=== PATIENT | female | born 1960 | race Caucasian/White ===

== ENCOUNTER → 2016-09-14 | Outpatient (CLI) | payer OTHER ==
--- NOTE | 2016-09-15 11:12 | MR ---
Left ankle MRI HISTORY: Left ankle pain and swelling Correlation to prior left ankle MRI dated 07/12/2015 Abnormal thickening, abnormal increased signal within the Achilles tendon is again noted, there is tena rrounding edema signal as on prior exam. Findings may represent interstitial tears. The abnormal sign al along the peroneal tendons as on previous exam, difficult to exclude a small split-thickness tear as on prior, suspect ganglion cyst persists as noted on prior exam extending from the level of the si nus Tarsi. Fluid signal again noted along the flexor tendons. Some edema present in the subchondral region at the tarsometatarsal joints of the second, third and f irst digits compatible with osteoarthritis. Later aponeurosis is intact. Findings are essentially sta ble compared to prior exam. IMPRESSION: Stable exam. Longitudinal interstitial tear is suspected within the Achilles tendon, mode rate to severe middle third Achilles tendinosis, peritendinitis.. Peroneal and flexor tendons tenosyn ovitis. Osteoarthritic change metatarsal tarsal joints. Stable ganglion cyst.
== END | disposition home or self-care (01) ==
LOC: RADMRIMAIN 14:42
PROVIDERS: ATTEND Nurse Practitioner Family
DX: M19.072 Primary osteoarthritis, left ankle and foot (principal); M67.472 Ganglion, left ankle and foot; M76.62 Achilles tendinitis, left leg; M65.872 Other synovitis and tenosynovitis, left ankle and foot

== ENCOUNTER → 2016-09-21 | Outpatient (CLI) | payer OTHER ==
--- NOTE | 2016-09-26 08:51 | MM ---
Reason for exam: screening (asymptomatic). Last mammogram was performed 5 years and 9 months ago. History: Patient is postmenopausal. Physical Findings: A clinical breast exam by your physician is recommended on an annual basis and results should be correlated with mammographic findings. MG Screening Mammo w CAD Bilateral CC and MLO view(s) were taken. Prior study comparison: December 12, 2010, mammogram. There are scattered fibroglandular densities. No significant changes when compared with prior studies. ASSESSMENT: Benign, BI-RAD 2 RECOMMENDATION: Routine screening mammogram of both breasts in 1 year.
== END | disposition home or self-care (01) ==
LOC: RADMAMWWP 15:22
PROVIDERS: ATTEND Family Medicine
DX: Z12.31 Encounter for screening mammogram for malignant neoplasm of breast (principal)

== ENCOUNTER → 2016-11-22 | Outpatient (CLI) | payer OTHER ==
--- NOTE | 2016-11-23 13:02 | MR ---
EXAMINATION TYPE: MR knee RT wo con DATE OF EXAM: 11/22/2016 COMPARISON: NONE HISTORY: Rt. knee pain TECHNIQUE: Multiplanar, multisequence imaging of the right knee is performed without IV contrast. FINDINGS: MEDIAL MENISCUS: There is a complex, likely chronic tear of the medial meniscus involving both radial and longitudinal components as well as the anterior and posterior horns. LATERAL MENISCUS: Anterior and posterior horns are intact without tear. CRUCIATE LIGAMENTS: The anterior and posterior cruciate ligaments are intact and unremarkable. COLLATERAL LIGAMENTS: The medial collateral ligament and lateral collateral ligament complex are inta ct and unremarkable. EXTENSOR MECHANISM: Visualized quadriceps and patellar tendons are intact. EFFUSION: Small suprapatellar joint effusion is seen with internal intermediate signal compatible wi th synovitis. Medial and lateral retinacula are intact. POPLITEAL CYST: No popliteal/rashid cyst. TRICOMPARTMENT SPACES: Tricompartmental joint space narrowing is seen, most severe within the medial compartment with near [id number]-ci-vvva articulation and subchondral bone marrow edema. Large protuberant marginal osteophytes are also seen. The medial and lateral femoral condyles. CARTILAGE: No focal fissures are seen or partial thickness defects of the lateral patellar facet or t rochlea, however heterogenous signal is appreciated indicative of chondromalacia. Focal near full-thi ckness cartilaginous defect of the medial facet of the superior patella is seen measuring 1.1 cm. Focal full-thickness cartilaginous defect of the medial compartment is present measuring 1.5 x 1.9 cm in transverse by anterior posterior dimension. Again underlying subchondral bone marrow edema is see n as well as subchondral cysts indicating chronicity. Heterogenous signal intensity is seen of the lateral compartment cartilage although no full-thickness or partial-thickness defects are seen. OTHER: High fluid signal is seen deep to the medial collateral ligament compatible with MCL bursitis . Nonspecific small amount of prepatellar edema is present. IMPRESSION: 1. Complex tear of the entirety of the medial meniscus involving the anterior horn, posterior horn, a nd meniscal body. Underlying full-thickness cartilaginous defect of the medial compartment measures 1 .5 x 1.9 cm with subchondral bone marrow edema and subchondral cysts. 2. Moderate tricompartmental osteoarthrosis and chondrosis, most severe within the medial compartment . 3. Medial collateral ligament bursitis. 4. Small suprapatellar joint effusion and evidence of synovitis.
== END | disposition home or self-care (01) ==
LOC: RADMRIMAIN 08:22
PROVIDERS: ATTEND Nurse Practitioner Family
DX: S83.241A Other tear of medial meniscus, current injury, right knee, initial encounter (principal); M76.41 Tibial collateral bursitis [Pellegrini-Stieda], right leg; M17.11 Unilateral primary osteoarthritis, right knee; M94.8X6 Other specified disorders of cartilage, lower leg; M25.861 Other specified joint disorders, right knee

== ENCOUNTER → 2017-03-23 | Outpatient (CLI) | payer OTHER ==
--- NOTE | 2017-03-23 16:36 | MR ---
EXAMINATION TYPE: MR knee LT wo con DATE OF EXAM: 03/23/2017 COMPARISON: NONE HISTORY: Left Knee pain with Swelling since Pt Fell May 2016 TECHNIQUE: Multiplanar, multisequence imaging of the left knee is performed without IV contrast. FINDINGS: MEDIAL MENISCUS: There is pseudoextrusion of the medial meniscus. Increased signal present within the posterior horn of the medial meniscus suggests tear, the meniscus is attenuated especially in the debra dy and along the anterior horn, there is also abnormal signal in the anterior horn suggestive of tear LATERAL MENISCUS: Anterior and posterior horns are intact without tear. CRUCIATE LIGAMENTS: The anterior and posterior cruciate ligaments are intact and unremarkable. COLLATERAL LIGAMENTS: The medial collateral ligament and lateral collateral ligament complex are inta ct and unremarkable. EXTENSOR MECHANISM: Visualized quadriceps and patellar tendons are intact. EFFUSION: No significant suprapatellar joint effusion. POPLITEAL CYST: No popliteal/rashid cyst. TRICOMPARTMENT SPACES: Joint space loss present especially in the medial compartment. 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 Some grade 2 to grade III chond romalacia suspected within the lateral compartment. Grade III chondromalacia suspected inferior poste rior patella BONE MARROW SIGNAL: Subchondral edema present in the medial compartment. OTHER: Tricompartmental marginal spurring is present and there is some soft tissue subcutaneous praveen a which is mild anteriorly IMPRESSION: Osteoarthritis most significant in the medial compartment with probable degenerative tear of the medi al meniscus.
== END | disposition home or self-care (01) ==
LOC: RADMRIMAIN 12:36
PROVIDERS: ATTEND Nurse Practitioner Family
DX: M17.12 Unilateral primary osteoarthritis, left knee (principal)

== ENCOUNTER → 2017-12-03 | Outpatient (CLI) | payer MEDICARE, OTHER ==
--- NOTE | 2017-12-04 12:22 | MM ---
Reason for exam: screening (asymptomatic). Last mammogram was performed 1 year and 2 months ago. History: Patient is postmenopausal. Physical Findings: A clinical breast exam by your physician is recommended on an annual basis and results should be correlated with mammographic findings. MG 3D Screening Mammo W/Cad Bilateral CC and MLO view(s) were taken. XCCL view(s) were taken of the right breast. Prior study comparison: September 21, 2016, bilateral MG screening mammo w CAD. December 12, 2010, mammogram. There are scattered fibroglandular densities. There is no discrete abnormality. No significant changes when compared with prior studies. ASSESSMENT: Negative, BI-RAD 1 RECOMMENDATION: Routine screening mammogram of both breasts in 1 year.
== END | disposition home or self-care (01) ==
LOC: RADMAMWWP 16:30
PROVIDERS: ATTEND Family Medicine
DX: Z12.31 Encounter for screening mammogram for malignant neoplasm of breast (principal)
CPT/HCPCS: 77063; 77067

== ENCOUNTER → 2018-01-10 | Outpatient (CLI) | payer MEDICARE, OTHER ==
--- NOTE | 2018-01-10 21:42 | MR ---
MR left ankle HISTORY: Left ankle pain Multiplanar multisequence imaging obtained through the left ankle Correlation to prior exam MR left ankle 09/14/2016 The Achilles tendon shows a similar appearance to prior exam, there is some surrounding edema change, abnormal thickening, increased signal internally compatible with partial interstitial Achilles tendo n tear. Subcutaneous edema changes are again noted. Bone marrow signal is maintained. Plantar aponeur osis is intact. There is a plantar calcaneal spur present. Arthropathy present at the tarsometatarsal joints. No sizable ankle joint effusion. Ganglion cyst again noted possibly originating from the sin us Tarsi. Fluid signal is coursing along the peroneal longus and brevis tendons, similar appearance, difficult to exclude a split-thickness tear. Flexor and extensor tendons are intact. IMPRESSION: Essentially stable findings. Findings compatible with chronic partial tear of the Aprli s tendon. Additional findings above, osteoarthritis. Ganglion cyst.
== END ==
LOC: RADMRIMAIN 20:18
PROVIDERS: ATTEND Podiatrist Foot & Ankle Surgery
DX: M19.072 Primary osteoarthritis, left ankle and foot (principal); M77.32 Calcaneal spur, left foot; M67.472 Ganglion, left ankle and foot

== ENCOUNTER → 2023-01-25 | Outpatient (CLI) | payer MEDICARE | END | disposition home or self-care (01) | LOC: LABWHC1 12:50 | PROVIDERS: ATTEND Orthopaedic Surgery | DX: Z01.812 Encounter for preprocedural laboratory examination (principal); M17.11 Unilateral primary osteoarthritis, right knee; Z22.322 Carrier or suspected carrier of Methicillin resistant Staphylococcus aureus | CPT/HCPCS: 87070 ==

== ENCOUNTER 2023-02-04 08:24 | Observation (INO) | payer MEDICARE ==
[2023-02-01 08:49] VITALS: BMI 45.6
--- NOTE | 2023-02-03 18:10 | HP ---
HISTORY AND PHYSICAL DATE OF SURGERY: Her surgery is scheduled for 02/04/2023. HISTORY OF PRESENT ILLNESS: Abimbola Linton is a 62-year-old patient, seen with symptomatic right knee osteoarthritis. We discussed options for treatment. She elected to proceed with right total knee arthroplasty. Consent was obtained. Medical clearance was provided by Dr. Ronal Paige PAST MEDICAL HISTORY: Noncontributory. PAST SURGICAL HISTORY: Noncontributory. DAILY MEDICATIONS: Ibuprofen. ALLERGIES: 1. Penicillin. 2. Shellfish. SOCIAL HISTORY: She denies tobacco use. PHYSICAL EVALUATION OF THE RIGHT KNEE: Range of motion is -7 to 90 degrees. Tenderness along the medial and lateral joint lines. Crepitus along the medial patellofemoral compartments with range of motion. Genu varum deformity. Hip rotation without pain. Distal neurovascular exam is intact. IMAGING STUDIES: Radiographs of the right knee reveal severe osteoarthritic changes. IMPRESSION: Right knee osteoarthritis. PLAN: Right total knee arthroplasty. MMODL / IJN: [id number] /
[~2023-02-04 08:24] MED LIST: ACETAMINOPHEN TAB 500 MG TAB PO PRN; HYDROmorphone 0.5 MG/0.5 ML SYRINGE IVP PRN; LIDOCAINE 1% (10MG/ML) FOR IV START INTRADERMA PRN; MELOXICAM 7.5 MG TAB PO PRN; ONDANSETRON 4 MG/2 ML VIAL IVP ONE; TRANEXAMIC 1,000 MG/100ML-NACL 1,000 MG in SALINE 1 100ML.BAG IVPB PRN
[2023-02-04] MEDS: LACTATED RINGERS 1,000 ML IV SCH ×3 (09:16→23:18)
[2023-02-04] MEDS ORDERED: MIDAZOLAM 2 MG/2 ML VIAL IVP ONE (09:46)
--- NOTE | 2023-02-04 10:23 | P.ANPRN ---
Procedure Note - Anesthesia - Nerve Block Performed Right iPack Single Time Out Performed: Yes (0945) Date of Procedure: 02/04/23 Procedure Start Time: 09:53 Procedure Stop Time: 09:56 Location of Patient: PreOp Indication: Acute Post-Operative Pain, Requested by Surgeon Specifically requested for management of pain by DrBeverly: Mayo Elliott Sedation Type: Sedate with meaningful contact maintained Preparation: Sterile Prep Position: Supine Catheter: None Needle Types: Pajunk Needle Gauge: 21 Ultrasound used to visualize needle placement: Yes Ultrasound used to observe medication spread: Yes Injectate: 0.5% Ropivacaine (see comment for volume) (15cc+5cc nacl pf) Blood Aspirated: No Pain Paresthesia on Injection Noted: No Resistance on Injection: Normal Image Stored and Saved: Yes Events: Uneventful and Well Tolerated
--- NOTE | 2023-02-04 10:23 | P.ANPRN ---
Procedure Note - Anesthesia - Nerve Block Performed Right Adductor Canal Infusion Time Out Performed: Yes (0945) Date of Procedure: 02/04/23 Procedure Start Time: 09:46 Procedure Stop Time: 09:52 Location of Patient: PreOp Indication: Acute Post-Operative Pain, Requested by Surgeon Specifically requested for management of pain by DrBeverly: Mayo Elliott Sedation Type: Sedate with meaningful contact maintained Preparation: Sterile Prep Position: Supine Catheter Depth at Skin (cm): 9 Catheter: Indwelling Needle Types: Pajunk Needle Gauge: 18 Ultrasound used to visualize needle placement: Yes Ultrasound used to observe medication spread: Yes Injectate: 0.5% Ropivacaine (see comment for volume) (15cc+ 5cc nacl pf) Blood Aspirated: No Pain Paresthesia on Injection Noted: No Resistance on Injection: Normal Image Stored and Saved: Yes Events: Uneventful and Well Tolerated
[2023-02-04] MEDS ORDERED: ROPIVACAINE 5 MG/ML 30 ML VIAL ONE (10:25)
[2023-02-04] MEDS ORDERED: SODIUM CHLORIDE 0.9% (PF) 10 ML VIAL ONE (10:25)
[2023-02-04] MEDS ORDERED: fentaNYL (PF) 50 MCG/ML 50 ML VIAL ONE (10:25)
[2023-02-04] MEDS ORDERED: TRANEXAMIC 1,000 MG/100ML-NACL PREMIX BAG ONE (10:25)
[2023-02-04] MEDS ORDERED: PROPOFOL 10 MG/ML 20 ML VIAL IV ONE (10:25)
[2023-02-04] MEDS ORDERED: MIDAZOLAM 2 MG/2 ML VIAL ONE (10:25)
[2023-02-04] MEDS ORDERED: ceFAZolin 1,000 MG in SODIUM CHLORIDE 0.9% 1,000 ML IRRIGATION ONE (11:47)
[2023-02-04] MEDS ORDERED: ONDANSETRON 4 MG/2 ML VIAL IVP PRN (12:04)
[2023-02-04] MEDS ORDERED: NALOXONE 0.4 MG/ML 1 ML VIAL IV PRN (12:04)
[2023-02-04] MEDS ORDERED: HYDROmorphone 0.5 MG/0.5 ML SYRINGE IVP PRN (12:04)
--- NOTE | 2023-02-04 12:04 | P.OP ---
Date of Procedure: 02/04/23 Preoperative Diagnosis: Right knee osteoarthritis Postoperative Diagnosis: Right knee osteoarthritis Procedure(s) Performed: Right total knee arthroplasty Implants: 1. Depuy attune size 5 right cruciate retaining cemented femur 2. Depuy attune size 5 fixed bearing cemented tibial baseplate 3. Depuy attune size 5 fixed bearing cruciate retaining 12 mm polyethylene tibial insert 4. Depuy attune 35 mm all polyethylene cemented patella Anesthesia: regional (Abductor canal catheter, I packed locked), spinal Surgeon: Mayo Elliott [employer]er #1: Alphonse Schneider Estimated Blood Loss (ml): 35 Pathology: none sent Condition: stable Disposition: PACU Indications for Procedure: 62-year-old patient seen with symptomatic right knee osteoarthritis. After treatment options were discussed, she elected to proceed with total knee arthroplasty. Operative Findings: See description of procedure Description of Procedure: Patient was taken to the operative suite after having an adductor canal catheter placed by the department of anesthesia. Patient underwent a spinal anesthetic by the department of anesthesia. Patient was given preoperative IV intake antibiotics and TXA. A well-padded tourniquet was placed about the right lower extremity. The lower extremity was then prepped and draped in the normal sterile orthopedic fashion. The extremity was elevated, a tourniquet was insufflated to 300. A standard anterior incision was made sharply through skin. Dissection was taken down through the subcutaneous soft tissues down to the extensor mechanism. A medial arthrotomy was performed, patella was everted and knee was flexed. There was advanced osteoarthritis noted. I introduced my distal intramedullary femoral drill. I then introduced the distal femoral cu tting jig. Ariel SANTIAGO secured the cutting jig with 2 pins. I held retractors in position while Ariel SANTIAGO performed the distal femoral resection through the guide area we now removed her distal femoral cutting guide. We now placed our 4-in-1 femoral cutting block and positioned and it was secured with 2 pins by Ariel SANTIAGO while I held the block in position. The distal femoral finishing was now completed. A proximal tibial cutting guide was positioned. I held the guide in the appropriate position with both hands well Ariel SANTIAGO inserted stabilizing pins into the guide. Proximal tibial cut was made. We now placed a trial femoral component into position, along with an appropriate size tibial tray and insert. We now took the knee through range of motion and had full extension good flexion and good overall soft tissue balance noted. The patella was everted and stabilized with 2 towel clips held by Ariel SANTIAGO while I performed a flush with patellar quad tendon utilizing a fresh sawblade. We templated the patella, appropriate drill holes were made. An appropriate trial patella was positioned, knee was taken through full range of motion with the patella tracking very nicely. The trial patella was removed. Drill holes were made through the femoral component. All trial components were removed after marking off the appropriate rotation of the tibia. Retractors were now positioned along the proximal tibia. An appropriate keel punch was made with the appropriate size tibial guide by myself on Ariel SANTIAGO assisted by holding retractors. At this point appropriate size implants were chosen and opened. The joint was irrigated copiously with pulse lavage mechanical irrigation. The wound was irrigated with pulse lavage mechanical irrigation. We mixed antibiotic methylmethacrylate. We placed the knee into flexion. We placed multiple retractors assisted by Ariel SANTIAGO to expose the proximal tibia. Once the methyl methacrylate was ready, the tibial component was cemented into place removing any excess methylmethacrylate form by both myself and Ariel SANTIAGO. The femoral component was cemented into place removing the removing any excess methylmethacrylate performed by both myself and Ariel SANTIAGO. We then inserted the appropriate size polyethylene tibial insert. We made sure that it was locked into position. We took the knee into full extension, and then back in a flexion making sure we had removed any excess methylmethacrylate. The patellar component was then cemented down and secured with clamp. Excess methylmethacrylate removed. We kept the knee in full extension, patellar clamp in position until methylmethacrylate had hardened. Once it had hardened the patellar clamp was removed. The knee was taken through full range of motion. The patella tracked nicely. There was good soft tissue balancing. The tourniquet was now released. Additional hemostasis was achieved via electrocautery. A second gram of TXA was given. The wound again was irrigated with pulse lavage mechanical irrigation. The extensor mechanism was repaired with Ethibond suture. We checked the repair with range of motion and it was stable. The subcutaneous soft tissues were repaired with Vicryl in layers. The skin was approximated with pernio/Dermabond. Sterile dressings were applied followed by loose web roll and Pancho bandage. The patient was transferred to a bed, and taken to recovery in stable and satisfactory condition. Ariel SANTIAGO assisted with this complex procedure.
[2023-02-04] MEDS ORDERED: ROPIVACAINE 1,100 MG, SODIUM CHLORIDE 0.9% 500 ML 330 ML, EMPTY PAIN BALL 1 EACH MISCELLANE PRN ×2 (12:57)
--- NOTE | 2023-02-04 13:12 | XR ---
EXAMINATION TYPE: XR knee limited RT DATE OF EXAM: 02/04/2023 CLINICAL HISTORY: Postoperative evaluation Two views of the right knee are submitted. Identified are changes of total knee arthroplasty with femoral and tibial components appearing well seated. Postsurgical soft tissue changes are noted. Alignment is anatomic.
[2023-02-04] MEDS: HYDROmorphone 1 MG/ML 1 ML SYRINGE IVP PRN (16:32)
[2023-02-04] MEDS: HYDROcodone/APAP 7.5-325MG 1 EACH TAB PO PRN (20:57)
[2023-02-04] MEDS: SENNOSIDES-DOCUSATE SODIUM 1 EACH TAB PO SCH (20:57)
[2023-02-05] MEDS: ENOXAPARIN 30 MG/0.3 ML SYRINGE SQ SCH ×3 (01:21→20:16)
[2023-02-05] MEDS: HYDROmorphone 0.5 MG/0.5 ML SYRINGE IVP PRN (01:22)
[2023-02-05] MEDS: HYDROcodone/APAP 7.5-325MG 1 EACH TAB PO PRN ×2 (06:19→20:16)
--- NOTE | 2023-02-05 07:37 | P.PN ---
Progress Note - Text Progress Note Date: 02/05/23 (647) Anesthesiology Postop day 1 status post total knee arthroplasty with adductor canal catheter. Patient doing well. VAS 10 out of 10. Gross strength intact in lower extremity. Afebrile. Denies alterations in sensorium. Catheter site intact. Currently awaiting next dose of breakthrough medication Heart regular rate Lungs nonlabored Abdomen nondistended Assessment: Postop day 1 status post total knee arthroplasty with adductor canal catheter Plan: 1.All questions answered. Maintain catheter 2 more days with patient removal at home. Instructions to be given at discharge. 2.This note was dictated using [employer] software. Please be advised there is a potential for misspellings or errors in manager competitive intelligence.
[2023-02-05] MEDS ORDERED: hydrOXYzine pamoate 25 MG CAP PO PRN (08:12)
[2023-02-05] MEDS ORDERED: ONDANSETRON 4 MG/2 ML VIAL IVP PRN (08:12)
[2023-02-05] MEDS: HYDROmorphone 1 MG/ML 1 ML SYRINGE IVP PRN ×3 (08:14→17:39)
[2023-02-05] MEDS: LACTATED RINGERS 1,000 ML IV SCH ×3 (08:25→17:35)
[2023-02-05 09:34] LABS: Basophils # (A) 0.03 X 10*3/uL (0.00-0.10); Basophils % (A) 0.4 %; Eosinophils # (A) 0.04 X 10*3/uL (0.04-0.35); Eosinophils % (A) 0.5 %; HCT 39.1 % (37.2-46.3); HGB 12.7 g/dL (12.0-15.0); Lymphocytes # (A) 1.54 X 10*3/uL (0.90-5.00); Lymphocytes % (A) 19.6 %; MCH 28.5 pg (27.0-32.0); MCHC 32.5 g/dL (32.0-37.0); MCV 87.9 FL (80.0-97.0); Mean Platelet Volume 13.1 FL (9.5-12.2); Monocytes % (A) 8.9 %; NRBC Per 100 WBC 0 X 10*3/uL (0.00-0.01); Neutrophils # (A) 5.51 X 10*3/uL (1.80-7.70); Neutrophils % (A) 70.3 %; Platelet Count 231 X 10*3/uL (140-440); RBC 4.45 X 10*6/uL (4.10-5.20); RDW 12.8 % (11.5-14.5); WBC 7.84 X 10*3/uL (4.50-10.00)
--- NOTE | 2023-02-05 10:39 | P.PN ---
Subjective Progress Note Date: 02/05/23 Principal diagnosis: Right knee osteoarthritis Patient was seen at bedside this morning lying semirecumbent position with Pancho bandages present over right lower extremity. Patient says she has been in a lot of pain overnight since surgery from yesterday. Patient says she has been up several times to use the commode next to the bed. Patient says the Barbeau has only been helping control her pain for a couple hours at a time. Patient mentions that she is also in nauseated and has vomited once since surgery yesterday. Patient says she does have a walker for home. Patient says she is looking forward to working with therapy later this morning. Patient denies chest pain, fever, shortness of breath, loss of bowel/bladder control. Objective - Vital Signs Vital signs: Vital Signs Temp 99.1 F 02/05/23 06:53 Pulse 64 02/05/23 06:53 Resp 16 02/05/23 06:53 BP 117/64 02/05/23 06:53 Pulse Ox 95 02/05/23 06:53 FiO2 Intake & Output 02/04/23 02/05/23 02/05/23 18:59 06:59 18:59 Intake Total 1051 Output Total 40 Balance 1011 Weight 102 kg Intake: IV 1051 Output: Estimated Blood Loss 40 Other: # Voids 1 1 - Exam Right knee: Incision is clean, dry, and intact. The silver foam dressing is in good condition. There is minimal soft tissue swelling and ecchymosis surrounding the medial and lateral aspects of the incision. Calf is soft, no tenderness with palpation. Plantar flexion, dorsiflexion, EHL, FHL are intact. Sensory exam to light touch throughout the extremity is intact, dorsal pedis pulses 2+. - Labs CBC & Chem 7: 02/05/23 05:05 Assessment and Plan Assessment: 1. Right knee osteoarthritis - Postop day 1 status post right total knee arthroplasty Plan: 1. Right knee osteoarthritis - right total knee arthroplasty performed yesterday, 01/04/2023. Patient stable at bedside this morning. Plan to keep patient 1 more night for additional pain control and therapy. Planning for discharge home tomorrow with health services. 2. Appreciate medical management 3. Pain management - Barbeau; Vistaril 4. DVT prophylaxis - Xarelto 5. GI prophylaxis - senna 6. PT/OT - weightbearing as tolerated with walker 7. Encourage incentive spirometer use 8. Discharge planning - plan for discharge home with health services tomorrow Time with Patient: Less than 30
--- NOTE | 2023-02-05 17:13 | P.CONS ---
History of Present Illness - Reason for Consult Consult date: 02/12/23 Medical management Requesting physician: Mayo Elliott - Chief Complaint Right knee osteoarthritis - History of Present Illness This is 62-year-old female with past medical history significant for obesity, right knee osteoarthritis status post right total knee arthroplasty. Tolerated procedure well. Complains of right hip pain as well as right knee pain. Reports positive nausea, no emesis. Denies chest pain, palpitations or shortness of breath. Maintaining O2 sats in the high 90s on room air. Passing flatus. T-max 99.1, WBC within normal limits. Review of Systems Constitutional: Denied any fatigue denied any fever. Cardio vascular: denied any chest pain, palpitations Gastrointestinal denied any nausea vomiting Pulmonary: Denied any shortness of breath cough Neurologic denied any new focal deficits All inpatient medications were reviewed and appropriate changes in these medications as dictated in the interval history and assessment and plan. Past Medical History Past Medical History: Osteoarthritis (OA) Additional Past Medical History / Comment(s): back, shoulder pain History of Any Multi-Drug Resistant Organisms: None Reported Past Surgical History: Appendectomy, Cholecystectomy, Orthopedic Surgery Additional Past Surgical History / Comment(s): ectopic SX. BILAT BUNIONECTOMIES. PILONIDAL CYSTECTOMY. COLONOSCOPY. CYST REMOVED FROM UNDER C HIN. Right total knee Past Anesthesia/Blood Transfusion Reactions: Previous Problems w/ Anesthesia, Postoperative Nausea & Vomiting (PONV) Additional Past Anesthesia/Blood Transfusion Reaction / Comm: SLOW TO WAKE UP FROM ANESTHESIA Past Psychological History: No Psychological Hx Reported Smoking Status: Former smoker Past Alcohol Use History: None Reported Additional Past Alcohol Use History / Comment(s): QUIT SMOKING IN THE Past Drug Use History: None Reported - Past Family History Daughter(s) Family Medical History: Cancer Additional Family Medical History / Comment(s): BREAST Mother Family Medical History: Deep Vein Thrombosis (DVT) Sister(s) Family Medical History: Cancer Medications and Allergies Home Medications Medication Instructions Recorded Confirmed Type No Known Home Medications 02/01/23 02/04/23 History Allergies Allergy/AdvReac Type Severity Reaction Status Date / Time Iodinated Contrast Media Allergy Anaphylaxis Verified 02/04/23 08:59 [Iodinated Contrast Media - IV Dye] Penicillins Allergy Rash/Hives Verified 02/04/23 08:59 shellfish derived [Shellfish] Allergy Anaphylaxis Verified 02/04/23 08:59 Physical Exam Vitals: Vital Signs Temp Pulse Pulse Resp BP Pulse Ox 02/05/23 13:44 98.6 F 60 18 125/64 95 02/05/23 06:53 99.1 F 64 16 117/64 95 02/05/23 01:58 99.1 F 58 L 131/65 97 02/04/23 17:55 98.2 F 52 L 19 131/65 99 Intake and Output 02/05/23 02/05/23 02/05/23 06:59 14:59 22:59 Other: Voiding Method Bedside Commode # Voids 1 PHYSICAL EXAM: VITAL SIGNS: As above GENERAL: Alert and oriented 3 Lying in bed, currently reporting pain HEENT: Normocephalic, Conjunctivae normal. eyes normal. NECK: Supple, No JVD. No thyroid enlargement. No LNs CARDIOVASCULAR: S1, S2 regular.. No murmur RESPIRATION: Unlabored, equal air entry, Breath sounds diminished in the bases. No rhonchi or crackles. No bronchial breathing. ABDOMEN: Soft, nontender . No guarding. no masses palpable. +BS. LEGS: Right lower extremity and knee Pancho wrapped. No calf tenderness. NERVOUS SYSTEM: Cranial N 2-12 grossly normal.No focal deficits. Strength and sensation grossly intact. Skin: Warm and dry, no rash Results CBC & Chem 7: 02/05/23 05:05 Labs: Abnormal Lab Results - Last 24 Hours (Table) 02/05/23 Range/Units 05:05 MPV 13.1 H (9.5-12.2) [place] Assessment and Plan Assessment: Right knee osteoarthritis status post right total knee arthroplasty Morbid obesity, BMI 45 Plan: Continue on current medication regime ,monitoring and symptomatic treatment. Pain management/DVT prophylaxis as per primary. PT pending. Aggressive pulmonary toileting with incentive spirometer reinforced. Follow-up with PCP in one week.Thank you for the consult. The impression and plan of care has been dictated as directed. : I performed a history and examination of this patient, discussed the same with the dictator. I agree with the dictator's note ,documented as a scribe. Any ad ditional findings or plans will be noted.
[2023-02-05] MEDS: SENNOSIDES-DOCUSATE SODIUM 1 EACH TAB PO SCH (20:16)
[2023-02-06] MEDS: HYDROmorphone 0.5 MG/0.5 ML SYRINGE IVP PRN (00:36)
[2023-02-06] MEDS: HYDROcodone/APAP 7.5-325MG 1 EACH TAB PO PRN ×3 (03:24→17:52)
[2023-02-06] MEDS: LACTATED RINGERS 1,000 ML IV SCH ×4 (05:19→23:39)
[2023-02-06] MEDS: HYDROmorphone 1 MG/ML 1 ML SYRINGE IVP PRN (08:08)
--- NOTE | 2023-02-06 08:37 | P.PN ---
Subjective Progress Note Date: 02/06/23 Principal diagnosis: Status post right total knee arthroplasty Patient was examined today at bedside, as was present. Patient was up in the chair earlier this morning for a few hours doing her exercises. She is definitely doing a lot better than yesterday, still struggling with pain control. She definitely has a lot of weakness in that extremity also. She is eager work with physical therapy later this morning. Patient did mention possibility of rehab, I discussed with her I would prefer to send patient home with home services. Currently denies headaches, lightheadedness, chest pain or shortness of breath. Objective - Vital Signs Vital signs: Vital Signs Temp 99.1 F 02/06/23 06:57 Pulse 86 02/06/23 06:57 Resp 18 02/06/23 06:57 BP 148/69 02/06/23 06:57 Pulse Ox 93 L 02/06/23 06:57 FiO2 Intake & Output 02/05/23 02/06/23 02/06/23 18:59 06:59 18:59 Intake Total 720 Output Total 1100 Balance 720 -1100 Intake: Oral 720 Output: Urine 1100 Other: Voiding Method Bedside Commode Bedside Commode # Voids 2 2 - Exam Right lower extremity: Incision is clean, dry, and intact. The foam dressing is in good condition. There is minimal soft tissue swelling and ecchymosis surrounding the medial and lateral aspects of the incision. Calf is soft, no tenderness with palpation. Plantar flexion, dorsiflexion, EHL, FHL are intact. Sensory exam to light touch throughout the extremity is intact, dorsal pedis pulses 2+. - Labs CBC & Chem 7: 02/05/23 05:05 Labs: Abnormal Lab Results - Last 24 Hours (Table) 02/05/23 Range/Units 05:05 MPV 13.1 H (9.5-12.2) FL Assessment and Plan Assessment: Postoperative day #2 status post right total knee arthroplasty Plan: Pain control, continue both Andrews and Vistaril. Try to avoid IV narcotics DVT prophylaxis, continue subcu medication Wound care, continue to monitor bandage. Continue to ice and elevate the extremity often Continue PT/OT Weight-bear as tolerated with walker Encourage incentive spirometer Medical recommendations appreciated Discharge planning: Plan for discharge to home with home health care on 02/07/2023 Time with Patient: Less than 30
[2023-02-06] MEDS: ENOXAPARIN 30 MG/0.3 ML SYRINGE SQ SCH ×2 (09:53→20:20)
--- NOTE | 2023-02-06 13:54 | P.PN ---
Subjective Progress Note Date: 02/06/23 - History of Present Illness the This is 62-year-old female with past medical history significant for obesity, right knee osteoarthritis status post right total knee arthroplasty. Tolerated procedure well. Complains of right hip pain as well as right knee pain. Report s positive nausea, no emesis. Denies chest pain, palpitations or shortness of breath. Maintaining O2 sats in the high 90s on room air. Passing flatus. T- max 99.1, WBC within normal limits. 02/06/2023 maintained on gentle IV fluid hydration. Pain improving, sitting up in chair. PT pending. Passing flatus. Denies nausea vomiting or diarrhea. No chest pain, palpitations or shortness of breath. Maintaining O2 sats in the 90s on room air. T-max 99.1. Objective - Vital Signs Vital signs: Vital Signs Temp 99.1 F 02/06/23 06:57 Pulse 86 02/06/23 06:57 Resp 18 02/06/23 06:57 BP 148/69 02/06/23 06:57 Pulse Ox 93 L 02/06/23 06:57 FiO2 Intake & Output 02/05/23 02/06/23 02/06/23 18:59 06:59 18:59 Intake Total 720 Output Total 1100 Balance 720 -1100 Intake: Oral 720 Output: Urine 1100 Other: Voiding Method Bedside Commode Bedside Commode # Voids 2 2 1 - Exam PHYSICAL EXAM: VITAL SIGNS: As above GENERAL: Alert and oriented 3, sitting up in chair, no acute distress HEENT: Normocephalic, Conjunctivae normal. eyes normal. NECK: Supple, No JVD. CARDIOVASCULAR: S1, S2 regular. No murmur RESPIRATION: Unlabored, equal air entry, Breath sounds diminished in the bases. ABDOMEN: Soft, nontender . No guarding. no masses palpable. +BS. LEGS: Right lower extremity and knee Pancho wrapped. No calf tenderness. NERVOUS SYSTEM: Cranial N 2-12 grossly normal.No focal deficits. Strength and sensation grossly intact. Skin: Warm and dry, no rash - Labs CBC & Chem 7: 02/05/23 05:05 Assessment and Plan Assessment: Right knee osteoarthritis status post right total knee arthroplasty Morbid obesity, BMI 45 Plan: Continue on current medication regime ,monitoring and symptomatic treatment. Maintain aggressive pulmonary toileting with incentive spirometer reinforced. Pain management/DVT prophylaxis as per primary. Follow-up with PCP in one week. The impression and plan of care has been dictated as directed. : I performed a history and examination of this patient, discussed the same with the dictator. I agree with the dictator's note ,documented as a scribe. Any additional findings or plans will be noted.
--- NOTE | 2023-02-06 20:01 | US ---
EXAMINATION TYPE: US venous doppler duplex LE RT DATE OF EXAM: 02/06/2023 6:03 PM COMPARISON: NONE CLINICAL INDICATION: Female, 62 years old with history of edema,pain,rule out dvt; Right knee replace ment on 02/04/23. Pain and swelling since. No hx of DVT. Not on blood thinners SIDE PERFORMED: Right TECHNIQUE: The lower extremity deep venous system is examined utilizing real time linear array sonog blanca with graded compression, doppler sonography and color-flow sonography. VESSELS IMAGED: Common Femoral Vein Deep Femoral Vein Greater Saphenous Vein * Femoral Vein Popliteal Vein Small Saphenous Vein * Proximal Calf Veins (* superficial vessels) Right Leg: No evidence for DVT in vessels visualized. Prox popliteal limited due to position. Calf v eins limited due to edema IMPRESSION: Grayscale, color doppler, spectral doppler imaging performed of the deep veins of the lo wer extremities. There is normal flow, compressibility, vascular waveforms.
[2023-02-06] MEDS: SENNOSIDES-DOCUSATE SODIUM 1 EACH TAB PO SCH (20:20)
[2023-02-07] MEDS: HYDROcodone/APAP 7.5-325MG 1 EACH TAB PO PRN ×2 (03:09→10:18)
[2023-02-07 08:44] VITALS: BP 147/67; PULSE 76; RESP 18; TEMP 98.2
[2023-02-07] MEDS: LACTATED RINGERS 1,000 ML IV SCH ×2 (09:44→13:38)
[2023-02-07] MEDS: ENOXAPARIN 30 MG/0.3 ML SYRINGE SQ SCH (09:49)
--- NOTE | 2023-02-07 12:54 | P.PN ---
Subjective Progress Note Date: 02/07/23 Principal diagnosis: Status post right total knee arthroplasty Patient was examined today at bedside, she is resting in her hospital chair. Patient is feeling a lot better today. She was able to do the stairs. Pain is better controlled today. Patient did have a Doppler done of the lower extremity last night due to excessive swelling, was negative for DVT. Currently denies headaches, lightheadedness, chest pain or shortness of breath. Objective - Vital Signs Vital signs: Vital Signs Temp 98.2 F 02/07/23 07:30 Pulse 76 02/07/23 07:30 Resp 18 02/07/23 07:30 BP 147/67 02/07/23 07:30 Pulse Ox 95 02/07/23 07:30 FiO2 Intake & Output 02/06/23 02/07/23 02/07/23 18:59 06:59 18:59 Intake Total 1200 Balance 1200 Intake: IV 1200 Lactated Ringers 1,000 ml 1200 @ 100 mls/hr IV .Q10H [facility] Rx#:[id number] Other: Voiding Method Bedside Commode Toilet # Voids 1 6 - Exam Right lower extremity: Incision is clean, dry, and intact. The foam dressing is in good condition. There is minimal soft tissue swelling and ecchymosis surrounding the medial and lateral aspects of the incision. Calf is soft, no tenderness with palpation. Plantar flexion, dorsiflexion, EHL, FHL are intact. Sensory exam to light touch throughout the extremity is intact, dorsal pedis pulses 2+. - Labs CBC & Chem 7: 02/05/23 05:05 Assessment and Plan Assessment: Postoperative day #3 status post right total knee arthroplasty Plan: Pain control, plan for discharge to home with [place] DVT prophylaxis, aspirin 325 mg daily for 1 month Wound care, continue to monitor bandage. Continue to ice and elevate the extremity often Continue PT/OT Weight-bear as tolerated with walker Encourage incentive spirometer Medical recommendations appreciated Discharge planning: Discharge home today Time with Patient: Less than 30
--- NOTE | 2023-02-07 12:58 | P.DS ---
Providers Date of admission: 02/04/23 12:04 Expected date of discharge: 02/07/23 Attending physician: Mayo Elliott Consults: 02/04/23 12:04 Consult Physician Routine Consulting Provider: Ronal Paige Reason/Comments: Medical management Do you want consulting provider notified?: Yes Primary care physician: Ronal Paige Hospital Course: Date of admission: 02/04/2023 Date of discharge: 02/07/2023 Admission diagnosis: Status post right total knee arthroplasty Discharge diagnosis: Same Attending physician: Dr. Elliott Surgical procedures: Right total knee arthroplasty Brief history: Patient is a 62-year-old female with a history of progressive primary right knee osteoarthritis. At this point patient has failed conservative treatment measures and has opted to proceed with a elective right total knee arthroplasty . Hospital course: Details of patient's surgery can be found in operative report. Patient tolerated the procedure well and was subsequently transported to orthopedic floor. Patient's orthopeidc and medical care was provided daily. Patient had daily laboratory tests performed for evaluation of overall blood counts. Patient had daily physical therapy to include strengthening range of motion as well as education with walker ambulation. Patient was treated with Lovenox for their postoperative DVT prophylaxis during their inpatient stay. Patient was noted to have a relatively uneventful postoperative course. Patient reported satisfactory pain control with oral pain medications by postoperative day 3. Patient showed satisfactory progress with physical therapy. Patient moved steadily through the program and had no difficulty meeting the goals by postoperative day 3. Given patient's otherwise satisfactory course and having met physical therapy goals, plan is to discharge patient home on postoperative day 3. Discharge condition/disposition: Patient will be discharged home in stable condition. Discharge medications: Instructions are given on resumption of patient's normal daily medications per primary care recommendation, in addition patient will be prescribed . Discharge instructions: 1. Wound care and infection precautions, keep incision dry and covered while showering, no lotions, creams, moisturizers. No soaking, tubs, pools, hottubs. Do not scrub over the incision. 2. Weight-bear as tolerated with walker / cane until follow-up. 3. Ice and elevate when necessary. Do not exceed 20 minutes per hour with ice pack. 4. Utilize compression sleeve until seen at first follow up appointment. 5. Visiting nursing care. 6. Home physical therapy including home CPM. 7. Pain meds and anticoagulants per prescription. 8. Pain medication has potential to cause constipation. Increase oral fluid and fiber intake. Contact primary care provider if you have not had a bowel movement within 48 hours after discharge 9. No anti-inflammatory medication until discussed at first post operative visit, this including Motrin, Aleve, Mobic, Diclofenac 10. Follow up in office at 2 weeks postop with Ariel Schneider PA-C/Curt Branham 11. Follow up with your primary care doctor 7-10 days after discharge. 12. Contact [facility] with any questions, . Procedures: Right total knee arthroplasty Patient Condition at Discharge: Good Plan - Discharge Summary Discharge Rx Participant: Yes New Discharge Prescriptions: New HYDROcodone/APAP 7.5-325MG [[place] 7.5] 1 each PO Q6HR PRN #28 tab PRN Reason: Pain Sennosides/Docusate Sodium [Senna-S 8.6-50 mg Tablet] 2 each PO DAILY PRN #30 tablet PRN Reason: Constipation Aspirin 325 mg PO DAILY #30 tab Discharge Medication List Aspirin 325 mg PO DAILY #30 tab 02/07/23 [Rx] HYDROcodone/APAP 7.5-325MG [[place] 7.5] 1 each PO Q6HR PRN #28 tab 02/07/23 [Rx] Sennosides/Docusate Sodium [Senna-S 8.6-50 mg Tablet] 2 each PO DAILY PRN #30 tablet 02/07/23 [Rx] Follow up Appointment(s)/Referral(s): Ronal Paige DO [Primary Care Provider] - 1 Week [facility] [NON-STAFF] - As Needed (Continuous Passive Motion knee machine) [facility], [NON-STAFF] - As Needed Alphonse Schneider PAC [PHYSICIAN SALESFORCE DEVELOPER] - 02/20/23 4:20 pm Patient Instructions/Handouts: Knee Replacement (DC), Knee Replacement (GEN) Activity/Diet/Wound Care/Special Instructions: Orthopedic Discharge Instructions: 1. Wound care and infection precautions, keep incision dry and covered while showering, no lotions, creams, moisturizers. No soaking, pools, hot tubs. Do not scrub over incision. 2. Weight-bear as tolerated with walker / cane until follow-up. 3. Ice and elevate when necessary. Do not exceed 20 minutes per hour with ice pack. 4. Utilize compression sleeve until seen at first follow up appointment. 5. Pain meds and anticoagulants per prescription. 6. Pain medication has potential to cause constipation. Increase oral fluid and fiber intake. Contact primary care provider if you have not had a bowel movement within 48 hours after discharge. 7. No anti-inflammatory medication until discussed at first post operative visit, this including Motrin, Aleve, Mobic, Diclofenac. 8. Follow up in office at 2 weeks postop with Ariel Schneider PA-C / Curt Castro PA-C 9. Follow up with your primary care doctor 7-10 days after discharge. 10. Contact [facility] with any questions, . Keep incision clean, dry, intact. While showering, cover dressing with Saran wrap. Keep dressing on until 02/11/2023. Okay to remove dressing on 02/11/2023. It is okay to shower directly over incision once dressing is removed. Discharge Disposition: HOME WITH HOME HEALTH SERVICES
[2023-02-07 13:15] LABS: Basophils # (A) 0.04 X 10*3/uL (0.00-0.10); Basophils % (A) 0.6 %; Eosinophils # (A) 0.08 X 10*3/uL (0.04-0.35); Eosinophils % (A) 1.1 %; HCT 35.7 % (37.2-46.3); HGB 11.7 g/dL (12.0-15.0); Lymphocytes # (A) 1.09 X 10*3/uL (0.90-5.00); Lymphocytes % (A) 15.2 %; MCH 28.9 pg (27.0-32.0); MCHC 32.8 g/dL (32.0-37.0); MCV 88.1 FL (80.0-97.0); Mean Platelet Volume 12.5 FL (9.5-12.2); Monocytes # (A) 0.56 X 10*3/uL (0.20-1.00); Monocytes % (A) 7.8 %; NRBC Per 100 WBC 0 X 10*3/uL (0.00-0.01); Neutrophils # (A) 5.38 X 10*3/uL (1.80-7.70); Platelet Count 231 X 10*3/uL (140-440); RBC 4.05 X 10*6/uL (4.10-5.20); RDW 12.4 % (11.5-14.5); WBC 7.17 X 10*3/uL (4.50-10.00)
--- NOTE | 2023-02-07 13:51 | P.PN ---
Subjective Progress Note Date: 02/07/23 - History of Present Illness the This is 62-year-old female with past medical history significant for obesity, right knee osteoarthritis status post right total knee arthroplasty. Tolerated procedure well. Complains of right hip pain as well as right knee pain. Report s positive nausea, no emesis. Denies chest pain, palpitations or shortness of breath. Maintaining O2 sats in the high 90s on room air. Passing flatus. T- max 99.1, WBC within normal limits. 02/06/2023 maintained on gentle IV fluid hydration. Pain improving, sitting up in chair. PT pending. Passing flatus. Denies nausea vomiting or diarrhea. No chest pain, palpitations or shortness of breath. Maintaining O2 sats in the 90s on room air. T-max 99.1. 02/07/2023 significant clinical improvement. Sitting up in chair, states pain much improved and better controlled this morning. During the night developed affected lower extremity edema, Doppler negative for DVT. Denies nausea vomit ing or diarrhea. Positive bowel movement. Denies lightheadedness, dizziness or focal deficits. Denies chest pain, palpitations or shortness of breath. Maintaining O2 sats in the mid 90s on room air. T-max 99.3, normal WBC. Hemoglobin 11.7, platelets 231. Objective - Vital Signs Vital signs: Vital Signs Temp 98.2 F 02/07/23 07:30 Pulse 76 02/07/23 07:30 Resp 18 02/07/23 07:30 BP 147/67 02/07/23 07:30 Pulse Ox 95 02/07/23 07:30 FiO2 Intake & Output 02/06/23 02/07/23 02/07/23 18:59 06:59 18:59 Intake Total 1200 250 Balance 1200 250 Intake: IV 1200 Lactated Ringers 1,000 ml 1200 @ 100 mls/hr IV .Q10H [facility] Rx#:[id number] Oral 250 Other: Voiding Method Bedside Commode Toilet # Voids 1 6 - Exam PHYSICAL EXAM: VITAL SIGNS: As above GENERAL: Alert and oriented 3, sitting up in chair, no acute distress HEENT: Normocephalic, Conjunctivae normal. MMM. NECK: Supple, No JVD. CARDIOVASCULAR: S1, S2 regular. No murmur RESPIRATION: Unlabored, equal air entry, CTA.Breath sounds diminished in the bases. ABDOMEN: Soft, nontender, nondistended. No guarding. no masses palpable. +BS. LEGS: Right lower extremity mild edema, No calf tenderness. Positive DP pulse NERVOUS SYSTEM: Cranial N 2-12 grossly normal.No focal deficits. Strength and sensation grossly intact. Skin: Warm and dry, no rash - Labs CBC & Chem 7: 02/07/23 06:47 Labs: Abnormal Lab Results - Last 24 Hours (Table) 02/07/23 Range/Units 06:47 RBC 4.05 L (4.10-5.20) X 10*6/uL Hgb 11.7 L (12.0-15.0) g/dL Hct 35.7 L (37.2-46.3) % MPV 12.5 H (9.5-12.2) [place] Assessment and Plan Assessment: Right knee osteoarthritis status post right total knee arthroplasty Morbid obesity, BMI 45 Plan: Continue on current medication regime ,monitoring and symptomatic treatment. Discharge planning in progress as per [facility]. Continue aggressive pulmonary toileting with incentive spirometer reinforced. Pain management/DVT prophylaxis as per primary. Follow-up with PCP in one week. The impression and plan of care has been dictated as directed. : I performed a history and examination of this patient, discussed the same with the dictator. I agree with the dictator's note ,documented as a scribe. Any additional findings or plans will be noted.
== END 2023-02-07 14:12 | disposition home health service (06) ==
LOC: OR 08:24 → INTOOBSV 12:04 → 4SSUR 12:04 → OR 12:04 → OBSVTOIN 12:04 → 4SSUR 12:46 → UNDODISIN 02-07 14:12
PROVIDERS: ADMIT Orthopaedic Surgery; ATTEND Orthopaedic Surgery
DX: M17.11 Unilateral primary osteoarthritis, right knee (principal); Z68.42 Body mass index [BMI] 45.0-49.9, adult; R11.0 Nausea; M25.551 Pain in right hip; G89.18 Other acute postprocedural pain; E66.01 Morbid (severe) obesity due to excess calories; Z87.891 Personal history of nicotine dependence; Z88.0 Allergy status to penicillin
CPT/HCPCS: 27447; 96376 ×3; 96361 ×3; 96365; 96372 ×3; 96375; 97116 ×2; 97530; 97162; 64999; 64448; 85025 ×2; 73560; 93971; G0378 ×4; C1776; C1713 ×2; C1751; J2250; J3010; J0690 ×3; J2405 ×2; J1650 ×3; J1170 ×6; J2795; J2704

== ENCOUNTER 2023-02-09 18:42 | Emergency (ER) | payer MEDICARE ==
--- NOTE | 2023-02-09 19:10 | ED ---
General Adult HPI - General Chief complaint: Recheck/Abnormal Lab/Rx Stated complaint: POST OP Time Seen by Provider: 02/09/23 18:49 Source: patient, RN notes reviewed Mode of arrival: ambulatory Limitations: no limitations - History of Present Illness Initial comments: 62-year-old female presents to the emergency department with chief complaint of right lower extremity swelling post knee replacement surgery on Saturday. She states that she was discharged from the hospital Saturday. This was preformed by Dr. Elliott. She has been working on a machine for at home PT. She reports that the physical therapist is scheduled to come to her home on Saturday. She denies fever, chills, chest pain, shortness of breath. - Related Data Home Medications Medication Instructions Recorded Confirmed HYDROcodone/APAP 7.5-325MG [[place] 1 tab PO Q6HR PRN 02/09/23 02/09/23 7.5] Sennosides/Docusate Sodium 2 tab PO DAILY PRN 02/09/23 02/09/23 [Senna-S 8.6-50 mg Tablet] ondansetron HCL [Zofran] 8 mg PO Q12HR PRN 02/09/23 02/09/23 Previous Rx's Medication Instructions Recorded Aspirin 325 mg PO DAILY #30 tab 02/07/23 Allergies Allergy/AdvReac Type Severity Reaction Status Date / Time Iodinated Contrast Media Allergy Anaphylaxis Verified 02/09/23 20:52 [Iodinated Contrast Media - IV Dye] Penicillins Allergy Rash/Hives Verified 02/09/23 20:52 shellfish derived [Shellfish] Allergy Anaphylaxis Verified 02/09/23 20:52 Review of Systems ROS Statement: Those systems with pertinent positive or pertinent negative responses have been documented in the HPI. ROS Other: All systems not noted in ROS Statement are negative. Past Medical History Past Medical History: Osteoarthritis (OA) Additional Past Medical History / Comment(s): back, shoulder pain History of Any Multi-Drug Resistant Organisms: None Reported Past Surgical History: Appendectomy, Cholecystectomy, Orthopedic Surgery Additional Past Surgical History / Comment(s): ectopic SX. BILAT BUNIONECTOMIES. PILONIDAL CYSTECTOMY. COLONOSCOPY. CYST REMOVED FROM UNDER CHIN. Right total knee Past Anesthesia/Blood Transfusion Reactions: Previous Problems w/ Anesthesia, Postoperative Nausea & Vomiting (PONV) Additional Past Anesthesia/Blood Transfusion Reaction / Comment(s): SLOW TO WAKE UP FROM ANESTHESIA Past Psychological History: No Psychological Hx Reported Smoking Status: Former smoker Past Alcohol Use History: None Reported Past Drug Use History: None Reported - Past Family History Daughter(s) Family Medical History: Cancer Additional Family Medical History / Comment(s): BREAST Mother Family Medical History: Deep Vein Thrombosis (DVT) Sister(s) Family Medical History: Cancer General Exam Limitations: no limitations General appearance: alert, in no apparent distress Head exam: Present: atraumatic, normocephalic, normal inspection Eye exam: Present: normal appearance, PERRL, EOMI. Absent: scleral icterus, conjunctival injection, periorbital swelling ENT exam: Present: normal exam, mucous membranes moist Respiratory exam: Present: normal lung sounds bilaterally. Absent: respiratory distress, wheezes, rales, rhonchi, stridor Cardiovascular Exam: Present: regular rate, normal rhythm, normal heart sounds. Absent: systolic murmur, diastolic murmur, rubs, gallop, clicks Extremities exam: Present: tenderness (tibial), normal capillary refill, pedal edema, calf tenderness, other (DP and PT pulses 2+, surgical site nonerythematous, no warmth ). Absent: full ROM Back exam: Present: normal inspection Neurological exam: Present: alert, oriented X3 Psychiatric exam: Present: normal affect, normal mood Skin exam: Present: warm, dry, intact, normal color. Absent: rash Course Vital Signs 02/09/23 02/09/23 18:48 20:35 Temperature 97.9 F Pulse Rate 62 54 L Respiratory 17 18 Rate Blood Pressure 173/77 141/72 O2 Sat by Pulse 96 99 Oximetry Medical Decision Making - Medical Decision Making Was pt. sent in by a medical professional or institution (, PA, NEUROLOGY EPILEPSY PHYSICIAN, urgent care, hospital, or halfway...) When possible be specific @ -No Did you speak to anyone other than the patient for history (EMS, parent, family, police, friend...)? What history was obtained from this source @ -No Did you review nursing and triage notes (agree or disagree)? Why? @ -I reviewed and agree with nursing and triage notes Were old charts reviewed (outside hosp., previous admission, EMS record, old EKG, old radiological studies, urgent care reports/EKG's, halfway records)? Report findings @ -No old charts were reviewed Differential Diagnosis (chest pain, altered mental status, abdominal pain women, abdominal pain men, vaginal bleeding, weakness, fever, dyspnea, syncope, headache, dizziness, GI bleed, back pain, seizure, CVA, palpatations, mental health, musculoskeletal)? @ -Differential Musculoskeletal Muscular strain, contusion, ligament sprain, fracture, arthritis, septic arthritis, bursitis, cellulitis, muscle spasm, nerve compression, DVT, arterial occlusion, herpes zoster, electrolyte abnormality, tumor.... This is not meant to be in all inclusive list EKG interpreted by me (3pts min.). @ -None X-rays interpreted by me (1pt min.). @ -None done CT interpreted by me (1pt min.). @ -None done U/S interpreted by me (1pt. min.). @ -Ultrasound right lower extremity shows no evidence of DVT What testing was considered but not performed or refused? (CT, X-rays, U/S, labs)? Why? @ -None What meds were considered but not given or refused? Why? @ -None Did you discuss the management of the patient with other professionals (professionals i.e. , PA, NEUROLOGY EPILEPSY PHYSICIAN, lab, RT, psych nurse, social service technician, small products ii assembler, teacher, sheriff's officer, pillowcase cleaner)? Give summary @ -No Was smoking cessation discussed for >3mins.? @ -No Was critical care preformed (if so, how long)? @ -No Were there social determinants of health that impacted care today? How? (Homelessness, low income, unemployed, alcoholism, drug addiction, transportation, low edu. Level, literacy, decrease access to med. care, group home, rehab)? @ -No Was there de-escalation of care discussed even if they declined (Discuss DNR or withdrawal of care, Hospice)? DNR status @ -No What co-morbidities impacted this encounter? (DM, HTN, Smoking, COPD, CAD, Cancer, CVA, ARF, Chemo, Hep., AIDS, mental health diagnosis, sleep apnea, morbid obesity)? @ -None Was patient admitted / discharged? Hospital course, mention meds given and route, prescriptions, significant lab abnormalities, going to OR and other pertinent info. @ -discharged. Patient presented to emergency department chief complaint of right lower extremity swelling status post knee replacement by Dr. Elliott. Patient denies fever, chills, chest pain, shortness of breath. Surgical site looks appropriate, nonerythematous, no significant warmth. DP and PT pulses 2+. Ultrasound shows no evidence of DVT. Advised patient to rest, ice, elevate and follow-up with Dr. Elliott on Saturday. Patient agreeable and understanding of plan. Patient stable at discharge. Case discussed with Dr. Ingram Undiagnosed new problem with uncertain prognosis? @ -No Drug Therapy requiring intensive monitoring for toxicity (Heparin, Nitro, Insul in, Cardizem)? @ -No Were any procedures done? @ -No Diagnosis/symptom? @ -lower extremity swelling Acute, or Chronic, or Acute on Chronic? @ -acute Uncomplicated (without systemic symptoms) or Complicated (systemic symptoms)? @ -uncomplicated Side effects of treatment? @ -knee replacement Exacerbation, Progression, or Severe Exacerbation? @ -No Poses a threat to life or bodily function? How? (Chest pain, [place], [place], pneumonia, PE, COPD, DKA, ARF, appy, cholecystitis, CVA, Diverticulitis, Homicidal, Suicidal, threat to staff... and all critical care pts) @ -No Disposition Clinical Impression: Status post knee replacement, Swelling of lower extremity Disposition: HOME SELF-CARE Condition: Stable Instructions (If sedation given, give patient instructions): Leg Edema (ED), Knee Replacement (DC) Additional Instructions: Please follow up with Dr. Elliott on Saturday. Return to the emergency department for new or worsening symptoms. Is patient prescribed a controlled substance at d/c from ED?: No Referrals: Lidya Meyer, TATIANNA [REFERRING] - 1-2 days
[2023-02-09 20:59] VITALS: RESP 18
--- NOTE | 2023-02-09 21:16 | US ---
EXAMINATION TYPE: US venous doppler duplex LE RT DATE OF EXAM: 02/09/2023 7:09 PM COMPARISON: Venous ultrasound 02/06/2023 CLINICAL INDICATION: Female, 62 years old with history of pain, swelling post op; Previous US 3 days ago was negative. Patient had knee surgery 02/04. Pain. No redness. On blood thinners. SIDE PERFORMED: Right TECHNIQUE: The lower extremity deep venous system is examined utilizing real time linear array sonog blanca with graded compression, doppler sonography and color-flow sonography. VESSELS IMAGED: Common Femoral Vein Deep Femoral Vein Greater Saphenous Vein * Femoral Vein Popliteal Vein Small Saphenous Vein * Proximal Calf Veins (* superficial vessels) Right Leg: Negative for DVT IMPRESSION: No evidence of DVT in the right lower extremity.
[2023-02-09 22:21] VITALS: BP 150/71; PULSE 60; TEMP 98.6
== END 2023-02-09 22:20 | disposition home or self-care (01) ==
LOC: EC 18:42
DX: R22.41 Localized swelling, mass and lump, right lower limb (principal); Z96.651 Presence of right artificial knee joint; M19.90 Unspecified osteoarthritis, unspecified site; Z87.891 Personal history of nicotine dependence; Z88.0 Allergy status to penicillin; Z91.041 Radiographic dye allergy status; Z91.013 Allergy to seafood; Z79.899 Other long term (current) drug therapy
CPT/HCPCS: 99284

== ENCOUNTER 2024-04-08 10:56 | Emergency (ER) | payer MEDICARE ==
--- NOTE | 2024-04-08 11:32 | ED ---
Back Pain HPI - General Chief Complaint: Back Pain/Injury Stated Complaint: left side hip and back pain Time Seen by Provider: 04/08/24 11:08 Source: patient, RN notes reviewed Limitations: no limitations - History of Present Illness Initial Comments: Patient is a 63 year old female who presents with left sided hip and lower back pain x 2-3 days. She states that she has chronic back pain, but in the last 2-3 days the pain intensity has increased. She states the pain is sharp, feels like "my bones grinding together" and an 11/10. She states it is a constant pain that shoots down her leg as well. She follows with a chiropractor and her PCP, and her PCP gave her a "double dose pain shot" today about 1.5 hours ago, which did not relieve the pain at all resulting in her PCP recommending her to come to ED. She states that she cannot sit or walk due to the pain. She states that she feels like she has to go to the bathroom but can't due to the pain when sitting. She states that moving her left leg also causes significant pain, so she refrains from doing so. She denies any numbness or tingling in between her legs, loss of urinary or bowel function. - Related Data Home Medications Medication Instructions Recorded Confirmed HYDROcodone/APAP 7.5-325MG [[place] 1 tab PO Q6HR PRN 02/09/23 02/09/23 7.5] Sennosides/Docusate Sodium 2 tab PO DAILY PRN 02/09/23 02/09/23 [Senna-S 8.6-50 mg Tablet] ondansetron HCL [Zofran] 8 mg PO Q12HR PRN 02/09/23 02/09/23 Previous Rx's Medication Instructions Recorded Aspirin 325 mg PO DAILY #30 tab 02/07/23 Cyclobenzaprine [Flexeril] 10 mg PO TID PRN #15 tab 04/08/24 HYDROcodone/APAP 10-325MG [[place] 1 tab PO Q6HR PRN 3 Days #12 tab 04/08/24 10-325] predniSONE 50 mg PO DAILY #5 tab 04/08/24 Allergies Allergy/AdvReac Type Severity Reaction Status Date / Time Iodinated Contrast Media Allergy Anaphylaxis Verified 04/08/24 11:01 [Iodinated Contrast Media - IV Dye] Penicillins Allergy Rash/Hives Verified 04/08/24 11:01 shellfish derived [Shellfish] Allergy Anaphylaxis Verified 04/08/24 11:01 Review of Systems ROS Statement: Those systems with pertinent positive or pertinent negative responses have been documented in the HPI. ROS Other: All systems not noted in ROS Statement are negative. Past Medical History Past Medical History: Osteoarthritis (OA) Additional Past Medical History / Comment(s): back, shoulder pain History of Any Multi-Drug Resistant Organisms: None Reported Past Surgical History: Appendectomy, Cholecystectomy, Orthopedic Surgery Additional Past Surgical History / Comment(s): ectopic SX. BILAT BUNIONECTOMIES. PILONIDAL CYSTECTOMY. COLONOSCOPY. CYST REMOVED FROM UNDER CHIN. Right total knee Past Anesthesia/Blood Transfusion Reactions: Previous Problems w/ Anesthesia, Postoperative Nausea & Vomiting (PONV) Additional Past Anesthesia/Blood Transfusion Reaction / Comment(s): SLOW TO WAKE UP FROM ANESTHESIA Past Psychological History: No Psychological Hx Reported Smoking Status: Former smoker Past Alcohol Use History: None Reported Past Drug Use History: None Reported - Past Family History Daughter(s) Family Medical History: Cancer Additional Family Medical History / Comment(s): BREAST Mother Family Medical History: Deep Vein Thrombosis (DVT) Sister(s) Family Medical History: Cancer General Exam Limitations: no limitations General appearance: alert, anxious, in distress Head exam: Present: atraumatic, normocephalic, normal inspection Respiratory exam: Present: normal lung sounds bilaterally. Absent: respiratory distress, wheezes, rales, rhonchi, stridor Cardiovascular Exam: Present: regular rate, normal rhythm, normal heart sounds. Absent: systolic murmur, diastolic murmur, rubs, gallop, clicks Left Hip exam: Present: tenderness. Absent: full ROM, ecchymosis Upper Leg exam: Present: tenderness. Absent: full ROM (refuse to move d/t pain) Knee exam: Present: normal inspection Lower Leg exam: Present: normal inspection Ankle exam: Present: normal inspection Foot/Toe exam: Present: normal inspection Back exam: Present: tenderness (lower left) Neurological exam: Present: alert, oriented X3, CN II-XII intact Skin exam: Present: warm, dry, intact, erythema (facial flushing) Course Vital Signs 04/08/24 04/08/24 10:57 14:11 Temperature 98.0 F 98 F Pulse Rate 64 67 Respiratory 20 18 Rate Blood Pressure 136/79 133/86 O2 Sat by Pulse 100 100 Oximetry Medical Decision Making - Medical Decision Making Was pt. sent in by a medical professional or institution (, PAMELA, LANG PATH THERAPIST, urgent care, hospital, or assisted...) When possible be specific @ -No Did you speak to anyone other than the patient for history (EMS, parent, family, police, friend...)? What history was obtained from this source @ -No Did you review nursing and triage notes (agree or disagree)? Why? @ -I reviewed and agree with nursing and triage notes Were old charts reviewed (outside hosp., previous admission, EMS record, old EKG, old radiological studies, urgent care reports/EKG's, assisted records)? Report findings @ -No old charts were reviewed Differential Diagnosis (chest pain, altered mental status, abdominal pain women, abdominal pain men, vaginal bleeding, weakness, fever, dyspnea, syncope, headache, dizziness, GI bleed, back pain, seizure, CVA, palpatations, mental health, musculoskeletal)? @Differential Back Pain: Strain, zoster, cauda equina syndrome, epidural abscess, vertebral osteomyelitis, discitis, fracture, subluxation, disc herniation, DJD, spinal stenosis, dissection, AAA, pancreatitis, peptic ulcer disease, pyelonephritis, kidney stone, this is not meant to be an all-inclusive list. EKG interpreted by me (3pts min.). @ -None X-rays interpreted by me (1pt min.). @ -X-ray left hip and AP pelvis degenerative changes CT interpreted by me (1pt min.). @ -CT lumbar spine showing herniated disc, spinal stenosis degenerative changes U/S interpreted by me (1pt. min.). @ -None done What testing was considered but not performed or refused? (CT, X-rays, U/S, labs)? Why? @ -None What meds were considered but not given or refused? Why? @ -None Did you discuss the management of the patient with other professionals (professionals i.e. , PAMELA, LANG PATH THERAPIST, lab, RT, psych nurse, clinical social work therapist, frontload driver, teacher, enforcement safety officer, rehabilitation case coordinator)? Give summary @ -No Was smoking cessation discussed for >3mins.? @ -No Was critical care preformed (if so, how long)? @ -No Were there social determinants of health that impacted care today? How? ( Homelessness, low income, unemployed, alcoholism, drug addiction, transportation, low edu. Level, literacy, decrease access to med. care, detention, rehab)? @ -No Was there de-escalation of care discussed even if they declined (Discuss DNR or withdrawal of care, Hospice)? DNR status @ -No What co-morbidities impacted this encounter? (DM, HTN, Smoking, COPD, CAD, Cancer, CVA, ARF, Chemo, Hep., AIDS, mental health diagnosis, sleep apnea, morbid obesity)? @ -None Was patient admitted / discharged? Hospital course, mention meds given and route, prescriptions, significant lab abnormalities, going to OR and other pertinent info. @ -Discharge patient has lumbar disc herniation with lumbar radiculopathy Symptoms no red flag symptoms noted. Patient will follow-up with orthopedic surgery patient discharged on steroids and analgesics Undiagnosed new problem with uncertain prognosis? @ -No Drug Therapy requiring intensive monitoring for toxicity (Heparin, Nitro, Insulin, Cardizem)? @ -No Were any procedures done? @ -No Diagnosis/symptom? @ -Lumbar disc herniation, spinal stenosis lumbar radiculopathy Acute, or Chronic, or Acute on Chronic? @ -Acute Uncomplicated (without systemic symptoms) or Complicated (systemic symptoms)? @ -Uncomplicated Side effects of treatment? @ -No Exacerbation, Progression, or Severe Exacerbation? @ -No Poses a threat to life or bodily function? How? (Chest pain, [place], [place], pneumonia, PE, COPD, DKA, ARF, appy, cholecystitis, CVA, Diverticulitis, Homicidal, Suicidal, threat to staff... and all critical care pts) @ -No Disposition Clinical Impression: Lumbar disc herniation with radiculopathy, Lumbar spinal stenosis Disposition: HOME SELF-CARE Condition: Stable Instructions (If sedation given, give patient instructions): Acute Low Back Pain (ED) Additional Instructions: Please return to the Emergency Department if symptoms worsen or any other concerns. Prescriptions: Cyclobenzaprine [Flexeril] 10 mg PO TID PRN #15 tab PRN Reason: Muscle Spasm HYDROcodone/APAP 10-325MG [[place] 10-325] 1 tab PO Q6HR PRN 3 Days #12 tab PRN Reason: pain predniSONE 50 mg PO DAILY #5 tab Is patient prescribed a controlled substance at d/c from ED?: Yes When asked, does pt state using other controlled substances?: No If prescribed controlled substance>3 days was MAPS reviewed?: Prescribed <3 Days If opioid is for acute pain is fill amount 7 days or less?: Yes If Rx opioid, was Start Talking consent form obtained?: Yes Referrals: Ronal Paige DO [Primary Care Provider] - 1-2 days Micah Flores DO [Doctor of Osteopathic Medicine] - 1-2 days Time of Disposition: 13:43
--- NOTE | 2024-04-08 12:16 | XR ---
EXAMINATION TYPE: XR Hip LT and AP Pelvis DATE OF EXAM: 04/08/2024 12:09 PM COMPARISON: None. CLINICAL INDICATION: Female, 63 years old with history of pain, pain TECHNIQUE: AP pelvis, 2 view left hip view(s) obtained. FINDINGS: Femoral heads articulate with the acetabulum. Joint spaces are preserved. Symphysis pubis and sacroil iac joints are normal. No acute fractures. Femoral head articulates with the acetabulum. No acute left hip fracture identified. Follow up exams can be performed as clinically indicated. IMPRESSION: 1. No acute osseous abnormality left hip X-[facility] Lopez, , 04/08/2024 12:14 PM
--- NOTE | 2024-04-08 13:33 | CT ---
EXAMINATION TYPE: CT lumbar spine wo con DATE OF EXAM: 04/08/2024 1:19 PM COMPARISON: 11/10/2015 CLINICAL INDICATION: Female, 63 years old with history of pain; PHH, fell 2 months ago left side pain TECHNIQUE: Unenhanced CT of the lumbar spine was performed. Bone and soft tissue window settings are submitted as well as coronal and sagittal reconstructions. CT DLP: 1280.[address] CTDI: mGy Automated exposure control for dose reduction was used. FINDINGS: The lumbar vertebral segments are normal in height and there is no fracture. There is a grade 1 anter olisthesis of L3 on L4. There is no spondylolysis. The disks bases are well preserved in height. There is a new small to moderate focal disc protrusion/ herniation the L4-5 disc to the left of midline significantly compromising the left lateral recess. S econdary to the listhesis, circumferential disc bulge, facet hypertrophy and ligamentum flavum hypert rophy there is a progressive and severe spinal stenosis at the L3-4 level.. There is mild facet arthropathy at the L3-4 level. The visualized sacrum and SI joints are normal. There is no bony neural foraminal encroachment. IMPRESSION: 1. Stable grade 1 anterolisthesis of L3 on L4 without spondylolysis. 2. Interval development of a small to moderate L4-5 left side disc protrusion/herniation as described above. 3. Progressive and now severe spinal stenosis at the L3-4 level as described above. 4. Mild facet arthropathy at the L3-4 level. [facility], , 04/08/2024 1:30 PM
[2024-04-08] MEDS: HYDROmorphone 1 MG/ML 1 ML SYRINGE IM STA (13:43)
[2024-04-08] MEDS: HYDROcodone/APAP 7.5-325MG 1 EACH TAB PO ONE (14:03)
[2024-04-08] MEDS: predniSONE 50 MG TAB PO STA (14:03)
[2024-04-08 14:13] VITALS: BP 133/86; PULSE 67; RESP 18; TEMP 98
== END 2024-04-08 14:19 | disposition home or self-care (01) ==
LOC: EC 10:56
DX: M51.16 Intervertebral disc disorders with radiculopathy, lumbar region (principal); M48.061 Spinal stenosis, lumbar region without neurogenic claudication; Z87.891 Personal history of nicotine dependence; Z88.0 Allergy status to penicillin; Z91.013 Allergy to seafood; Z91.041 Radiographic dye allergy status
CPT/HCPCS: 73502; 72131; 99284; 96372; J1171; J7512

== ENCOUNTER → 2024-06-18 | Outpatient (CLI) | payer MEDICARE | END | disposition home or self-care (01) | LOC: LABPAT 14:59 | PROVIDERS: ATTEND Orthopaedic Surgery | DX: Z22.322 Carrier or suspected carrier of Methicillin resistant Staphylococcus aureus (principal); M51.26 Other intervertebral disc displacement, lumbar region; Z01.812 Encounter for preprocedural laboratory examination | CPT/HCPCS: 86850; 86900; 86901; 87070 ==

== ENCOUNTER 2024-06-22 07:18 | Day surgery (SDC) | payer MEDICARE ==
[2024-06-17 14:17] VITALS: BMI 40.4
--- NOTE | 2024-06-21 11:59 | P.HPOR ---
History of Present Illness H&P Date: 06/21/24 .D:Date: 05/22/24 : 01:56pm .T:Title: [facility] [address] [place] [id number]| PROVIDER: MARCO ANTONIO MICHAELS DO CLINICAL SUMMARY: Ms. Abimbola Linton, a 63-year-old female with a BMI of 43.90 kg/m2, presents for follow-up evaluation of lumbar spine pathology and MRI results. The patient initially sustained injury from a ladder fall approximately 4 months ago, resulting in left-sided lumbar radiculopathy with associated weakness (4/5 strength in left lower extremity) and paresthesias. Imaging studies reveal L4-5 Grade I spondylolisthesis with large herniated nucleus pulposus causing severe stenosis, and L3-4 unstable Grade I spondylolisthesis with stenosis. Conservative management including physical therapy, adult care manager, and NSAIDs has failed to provide relief. After detailed discussion of surgical options and risks, patient has elected to proceed with L4-5 laminoforaminotomy with microdiscectomy (left, MIS). Current medications include ondansetron 8mg BID, gabapentin 100mg TID, and Medrol dose pack. Patient ambulates with cane assistance and reports VAS pain score of 5/10. DEMOGRAPHICS: Age: 63 year Height: 4'11.5" Weight: 221 lbs BP:124/80 BMI: 43.90 kg/m2 Occupation: Support Tech CC: lumbar pain VAS: 5 HISTORY: Ms. Linton presents to the office today, 05/22/24, for a recheck of her lumbar spine and MRI results. Patient states about 4 months ago she missed a step on a ladder and fell which caused the onset of her low back pain. Patient reports a a sharp, shooting, and burning pain that radiates across the low back and into the left lower extremity, associated with weakness and numbness/tingling. Patient states her pain is increased with prolonged sitting, walking, and standing. She is having night time sleep disturbances related to her ongoing pain and symptoms. Patient has previously trialed chiropractic treatment and physical therapy with worsening of her symptoms. Patient is currently taking Naproxen without resolution of her symptoms. She ambulates with a cane. * Patient denies any f/c/sob/cp, perineal numbness or tingling, bowel, or bladder incontinence/retention. * The patients past social, medical, family, surgical history, as well as review of systems, have been reviewed. Please refer to the History and Physical form that has been scanned into our electronic medical record system. * 16 points review of systems completed and as stated in HPI, all other systems reviewed are negative. PAST TREATMENTS: PAST IMAGING: -YES, xray and CT scan and MRI - TRAUMA RELATED: -YES fell of ladder - WORK RELATED: -NO - PT IN LAST 6 MONTHS: -NO - PHYSICIAN DIRECTED HOME EXERCISE PROGRAM: -YES, no relief - ACTIVITY MODIFICATION: -YES - MEDICATIONS: -YES, Naproxen - ALTERNATIVE INTERVENTIONS (CHIROPRACTIC, ACUPUNCTURE, MASSAGE, RICE): -YES, trialed chiropractic treatment with worsening of symptoms - BRACING: -NO - INJECTIONS (KLEVER, TF, RFA): -YES, 1 KLEVER in hospital with no relief MEDICAL HISTORY: Past Medical History: REVIEWED STATED IN CHART Past Surgical History: REVIEWED STATED IN CHART Social History: REVIEWED STATED IN CHART SMOKING: Never smoker ETOH: None SUBSTANCES: None Family History: REVIEWED STATED IN CHART P1 Current Medications: Rx: ondansetron HCL 8 mg tablet Ref: 0 Instructions: take 1 tablet (8 mg) by oral route 2 times per day Rx: gabapentin 100 mg capsule Ref: 0 Instructions: take 1 capsule (100 mg) by oral route 3 times per day Rx: Medrol (Nelson) 4 mg tablets in a dose pack Ref: 0 Instructions: take by oral route as directed per package instructions P1 PHYSICAL EXAM: General: AOX3, NAD, Well hydrate, well nourished, in no acute distress HEENT: No lumps or masses Extremities: No color changes, no pooling INTEGUMENT: Appearance: Normal color and turgor Surgical Incisions: N/A Hairy Patches: ABSENT Dorsal Skin Dimples: Normal [employer] spots: ABSENT PALPATION: TTP Midline: NO Paracervical: NO Parathoracic: NO Paralumbar: YES SIJ TESTING (Rafael's, FABER4, Compression, Distraction, Thigh Thrust, Hip Thrust): TESTED * POSITIVE FINDINGS: NEGATIVE FINDINGS: Rafael's, FABER4, Compression, Distraction, Thigh Thrust, Hip Thrust POSTURAL BALANCE: Coronal: BALANCED Sagittal: BALANCED Shoulder height: LEVEL Pelvic Girdle: LEVEL ROM AND APPEARANCE: Neck: UNRESTRICTED Lumbar: RESTRICTED Shoulders: Symmetrical Hips: Symmetrical Knees: Symmetrical Hands: Symmetrical Feet: Symmetrical VASCULAR STATUS: PALPABLE PULSES B/L UE AND LE 2/4 RAD/ULNAR/DP/PT Edema: NONE NEUROLOGICAL EXAMINATION: Mental Status: Awake, alert, fully oriented with normal attention, concentration, and memory. Fluent appropriate speech. CRANIAL NERVES: I: Olfactory not assessed. II: Visual acuity normal, no visual field deficit noted with confrontation. III, IV: Normal pupillary reflexes & intact extraocular movements without nystagmus. V, : Intact symmetrical facial sensation. VII: Intact symmetrical facial motor movement: Hearing intact. IX, X: Intact gag, swallow, & normal voice. XI: Sternocleidomastoid, trapezius function intact. XII: Tongue midline with normal movements. TENSIONING: * L'HERMITTE'S SIG:NEG SPURLUNG'S SIGN:NEG UPPER EXTREMITY TENSIONING SIGNS: NEG CUBITAL TUNNEL COMPRESSION:NEG TINELS AT WRIST:NEG STRAIGH LEG RAISE:POS CONTRALATERAL STRAIGHT LEG RAISE: NEG MOTOR EXAM (0-5/5, NT) Muscle appearance: Symmetrical, without signs of atrophy or dystrophy UPPER EXTREMITY RIGHT LEFT Shoulder Abduction 5 5 Biceps 5 5 Triceps 5 5 Wrist Extension 5 5 Hand Intrinsics 5 5 Pain Management Specialist 5 5 LOWER EXTREMITY RIGHT LEFT Hip Flexion 5 4 Knee Extension 5 4 Knee Flexion 5 4 Dorsiflexion 5 4 Plantarflexion 5 4 EHL 5 4 FHL 5 4 REFLEXES (0-4/2, NT): RIGHT LEFT Bicep 2 2 Brachioradialis 2 2 Triceps 2 2 Patellar 2 2 Achilles 2 2 PATHOLOGICAL REFLEXES: RIGHT LEFT ÁLVAREZ'S ABSENT ABSENT CLONUS ABSENT ABSENT BABINSKI ABSENT ABSENT RECTAL TONE: INTACT/NT SENSATION (0-4, NT): Sensation intact to LT and Pain * C5-T1 distribution BUE * L2-S2 distribution BLE *Exceptions below* DERMATOMAL DEFICIT/RADICULAR PATTERN: L3-S1 GAIT AND FUNCTIONAL EVALUATION: AMBULATORY AID CANE ROMBERG'S TEST INTACT HAND AND FINGER DEXTERITY INTACT YES DYSDIADOCHOKINESIA EXAM NEG B/L YES TOE/HEEL WALK INTACT WITH GOOD BALANCE NO SQUAT AND RISE W/O ASSISTANCE TO 60 DEG KNEE FLEXION NO SINGLE LEG STANCE NOT ABLE [place] NT IMAGING: XRAY Date: 04/16/24 Location: [facility] Region: LUMBAR AND PELVIS Views: MV IMAGES ARE REVIEWED WITH THE PATIENT IN OFFICE AND DEMONSTRATE THE FOLLOWING: FINDINGS: * L3-4 UNSTALBE GRADE I SPONDYLOLISTHESIS L5-S1 SPONDYLOSIS WITH DISC HEIGHT LOSS AND COLLAPSE L3-4 DISC HEIGHT LOSS WITH FACET ARTHROSIS. LL DECREASED DUE TO HEIGHT LOSS AND SLIP PELVIS SHOWS CONGRUENT LEVEL PELVIS W/O FRACTURE. CT Date: 04/08/24 Location: [facility] Region: LUMBAR Contrast: N IMAGES ARE REVIEWED WITH THE PATIENT IN OFFICE AND DEMONSTRATE THE FOLLOWING: FINDINGS: * L3-4 GRADE I SPONDYLOLISTHESIS, UNSTABLE WHEN COMPARED TO F/E FILMS. DISC COLLAPSE, VACUUM DISC AND FACET ARTHROSIS THAT IS MODERATE TO SEVERE. L5-S1 HNP NOTED WITH CENTRAL AND LEFT FORAMINAL / LATERAL RECESS STENOSIS THAT IS MODERATE FLATTENED LL DUE TO THE COLLAPSE AND THE LISTHESIS. NO LESIONS, NO FRACTURES. MRI WOULD BETTER QUANTIFY STENOSIS AND DISC HERNIATIONS WELL SLIP CHARACTERISTIS. MRI Date: 05/14/24 Location: [facility] Region: Lumbar Contrast: N IMAGES ARE REVIEWED WITH THE PATIENT IN OFFICE AND DEMONSTRATE THE FOLLOWING: FINDINGS L4-5 GRADE I SPONDYLOLISTHESIS STABLE WITH SPONDYLOSIS DISC COLLAPSE, WITH A LARGE PARACENTRAL DISC HERNIATION CAUSING SEVERE CENTRAL AND FORAMINAL STENOSIS ON THE LEFT. FACET ARTHROSIS CONTRIBUTING TO CENTRAL AND FORAMINAL STRENOSIS THAT IS MODERATE TO SEVERE WITH ROOT IMPINGEMENT ON EXIT AND SUBFACET ARTHROSIS AND HYPERTROPHY CAUSING STENOSIS. L3- GRADE I SPONDYLOLISTHESIS, UNSTABLE WITH SPONDYLOSIS DISC COLLAPSE, FACET ARTHROSIS CONTRIBUTING TO CENTRAL AND FORAMINAL STRENOSIS THAT IS MODERATE TO SEVERE WITH ROOT IMPINGEMENT ON EXIT AND SUBFACET ARTHROSIS AND HYPERTROPHY CAUSING STENOSIS WELL THIS IS WORSE ON THE LEFT THAT RIGHT AT THIS LEVEL, BUT CENTRALLY THERE IS SEVERE STENOSIS DUE TO THESE FINDINGS AND DEGENERATIVE DISC HERNIATIONS REMINAING LEVELS SHOW REASONABLE DISC HEIGHT AND HYDRATION ALONG WITH ALIGNMENT WHICH IS SEGMENTALLY DISRUPTED AT THE L34 AND L45 LEVELS. NO FRACTRUES OR LESIONS NOTED. IMPRESSION: It was my pleasure to have seen and examined Abimbola. I reviewed the patient's clinical syndrome, physical findings, and imaging studies during the appointment today. It is my impression that the patient has a diagnosis of. 1.L4-5 Grade 1 spondylolisthesis WITH LARGE HNP WITH SEVERE SETENOSIS 2. LUMBAR RADICULOPATHY LLE>RLE 3.L3-4 GRADE I SPONDYLOLISTHESIS, UNSTABLE, STENOSIS 4. NEUROGENIC CLAUDICATION PLAN: DISCUSSION: -I have discussed with the patient their clinical signs and symptoms, imaging, and treatment options. We have discussed risks, benefits, potential outcomes and natural course as pertains top their issues.THEY WOULD LIKE TO AVOID FUSION AT THIS TIME. The patient understands and would like to proceed as follows below: SURGICAL RECOMMENDATION -L4-5 LAMINOFORAMINOTOMY WITH MICRODISCECOMTY (LEFT, MIS) MIS LEFT TUBES THERAPIES -Cont. with home exercises and home PT exercises as able -Cont. with Heat/Ice as warranted -Cont. with supplementation Vit D, Vit C, Ca2+, High protein diet -OK for massage or other alternative treatment modalities as able. If it exacerbates your sx do not continue ACTIVITY -NO LIFTING BENDING TWISTING PUSHING PULLING GREATER THAN -20lbs -Recommend walking up to 30 min 2x daily on a flat easy surface with good support. -WORK STATUS: Off work 3 months post-operation MEDICATIONS -Rx: Gabapentin 100 TID #90 and Medrol Dosepak -Take as directed -Cont. home medications as directed by your PCP. Check with your PCP for any medication interactions or issues if needed. Spine Surgery Risk Review Ms. Linton is presenting for evaluation of lumbar pain. It was my pleasure to have seen and examined Ms. Linton. In our visit today we have had a chance to go over subjective complaints, physical examination findings and treatments including the natural course history without intervention and various interventional options. The patients imaging demonstrates: XRAY Date: 04/16/24 Location: [facility] Region: LUMBAR AND PELVIS Views: MV IMAGES ARE REVIEWED WITH THE PATIENT IN OFFICE AND DEMONSTRATE THE FOLLOWING: FINDINGS: * L3-4 UNSTABLE GRADE I SPONDYLOLISTHESIS L5-S1 SPONDYLOSIS WITH DISC HEIGHT LOSS AND COLLAPSE L3-4 DISC HEIGHT LOSS WITH FACET ARTHROSIS. LL DECREASED DUE TO HEIGHT LOSS AND SLIP PELVIS SHOWS CONGRUENT LEVEL PELVIS W/O FRACTURE. CT Date: 04/08/24 Location: [facility] Region: LUMBAR Contrast: N IMAGES ARE REVIEWED WITH THE PATIENT IN OFFICE AND DEMONSTRATE THE FOLLOWING: FINDINGS: * L3-4 GRADE I SPONDYLOLISTHESIS, UNSTABLE WHEN COMPARED TO F/E FILMS. DISC COLLAPSE, VACUUM DISC AND FACET ARTHROSIS THAT IS MODERATE TO SEVERE. L5-S1 HNP NOTED WITH CENTRAL AND LEFT FORAMINAL / LATERAL RECESS STENOSIS THAT IS MODERATE FLATTENED LL DUE TO THE COLLAPSE AND THE LISTHESIS. NO LESIONS, NO FRACTURES. MRI WOULD BETTER QUANTIFY STENOSIS AND DISC HERNIATIONS WELL SLIP CHARACTERISTIS. MRI Date: 05/14/24 Location: [facility] Region: Lumbar Contrast: N IMAGES ARE REVIEWED WITH THE PATIENT IN OFFICE AND DEMONSTRATE THE FOLLOWING: FINDINGS L4-5 GRADE I SPONDYLOLISTHESIS STABLE WITH SPONDYLOSIS DISC COLLAPSE, WITH A LARGE PARACENTRAL DISC HERNIATION CAUSING SEVERE CENTRAL AND FORAMINAL STENOSIS ON THE LEFT. FACET ARTHROSIS CONTRIBUTING TO CENTRAL AND FORAMINAL STRENOSIS THAT IS MODERATE TO SEVERE WITH ROOT IMPINGEMENT ON EXIT AND SUBFACET ARTHROSIS AND HYPERTROPHY CAUSING STENOSIS. L3- GRADE I SPONDYLOLISTHESIS, UNSTABLE WITH SPONDYLOSIS DISC COLLAPSE, FACET ARTHROSIS CONTRIBUTING TO CENTRAL AND FORAMINAL STRENOSIS THAT IS MODERATE TO SEVERE WITH ROOT IMPINGEMENT ON EXIT AND SUBFACET ARTHROSIS AND HYPERTROPHY CAU SING STENOSIS WELL THIS IS WORSE ON THE LEFT THAT RIGHT AT THIS LEVEL, BUT CENTRALLY THERE IS SEVERE STENOSIS DUE TO THESE FINDINGS AND DEGENERATIVE DISC HERNIATIONS REMINAING LEVELS SHOW REASONABLE DISC HEIGHT AND HYDRATION ALONG WITH ALIGNMENT WHICH IS SEGMENTALLY DISRUPTED AT THE L34 AND L45 LEVELS. NO FRACTRUES OR LESIONS NOTED. On physical exam, Ms. Linton demonstrates: Patient states about 4 months ago she missed a step on a ladder and fell which caused the onset of her low back pain. Patient reports a a sharp, shooting, and burning pain that radiates across the low back and into the left lower extremity, associated with weakness and numbness/tingling. Patient states her pain is increased with prolonged sitting, walking, and standing. She is having night time sleep disturbances related to her ongoing pain and symptoms. Patient has previously trialed chiropractic treatment and physical therapy with worsening of her symptoms. Patient is currently taking Naproxen without resolution of her symptoms. She ambulates with a cane. I have explained to the patient that as their condition progresses it will cause further neurological deficits and eventual paralysis. Based on the patients imaging, physical exam, and the rapid progression and disabling nature of their symptoms, at this time I recommend surgery in the form of a: L4-5 MORELOS INOFORAMINOTOMY WITH MICRODISCECOMTY (LEFT, MIS). I discussed the risk and benefits of this procedure at length with Ms. Linton. The patient [significant other] agreed to considered pursuing the procedure abovementioned. Prior to surgery, she should follow up with her PCP (Cardio, ID, IM etc) for clearance. Questions were invited and answered, and the patient wishes to proceed as outlined below. Currently, I am recommendin.L4-5 LAMINOFORAMINOTOMY WITH MICRODISCECOMTY (LEFT, MIS) 2.Follow up with PCP for surgical clearance 3.Review of surgical risks and benefits as well as an educational packet on the proposed surgical procedure. Risks: All surgical procedures come with inherent risks, including those related to positioning, anesthesia, intraoperative findings, and postoperative complications. It is important to understand that surgery does not come with any guarantee of a successful outcome as complications and adverse events are always possible. The patient was given a handout in office today discussing the surgical pr ocedure and risks associated with the intervention, both of which were discussed with the patient. These risks include but are not limited to the following: * Experiencing same, different or even worse symptoms in back, neck, arms, or legs compared to before surgery. Requiring further surgery or other forms of treatment presently or at some time in the future at same or other levels of the intended spine surgery. On an extreme but fortunately relatively rare basis severe complication such as blindness, stroke, heart attack, temporary and/or permanent nerve injury, paralysis, coma, or may occur, sometimes without known explanation. Surgical complications may include but are not limited to risk of infection, fluid accumulation in the surgical dissection site, including a seroma or hematoma, that requires additional surgery, wound drainage, bleeding, new numbness or weakness, vision changes/loss, spinal fluid leakage, non-healing and/or infected incision, headaches, difficulty or inability to swallow, hoarseness, hemopneumothorax, pneumothorax, impotence, retrograde ejaculation, vaginal dryness; injury to nerves, spinal cord, blood vessels, lymphatics or o ther vital organs (i.e., bowel injury, injury to the great vessels); heterotopic bone formation; complications related to the hardware such as screws, rods, cages including misplaced hardware, device failure, instrumentation at the wrong spine level, hardware fracture/breakage, or hardware loosening; vertebral failure of the spinal column above or below the newly placed hardware; retained surgical instrumentations or devices and the need for further surgery. * Medical risks of the planned spine surgery include but are not limited to generalized Infections to the whole body or local areas outside of the surgical site (sepsis), heart attack, bleeding, anaphylaxis, meningitis, seizure, epilepsy, hearing loss, burn fox, laceration of the head or other areas of the body, bruising, hypersensitivity of the skin, bladder over distension; allergic reaction; shoulder injury related to positioning; fat, blood and air clots to other areas of the body like heart, lungs, brain; failure of internal organs such as lungs, kidneys, liver and excessive bleeding. If blood transfusions are necessary, note that transfusions may cause intolerance reactions such as anaphylaxis or other complex reactions. Despite best efforts, the results of spine surgery might not heal in terms of bone, soft tissues such as skin, fascia, ligaments, and joints. Additionally, in order to achieve best possible results, spine surgery may be carried out beyond the initially planned levels and involve decompression, fusion including insertion of hardware at levels other than the original intended area of miko gical interest change some portions of the procedure in order to ensure the best possible outcomes. With spine surgery and spinal fusion, there are different off label uses of instrumentation (devices, implants and hardware) as well as biological substances (bone morphogenic proteins, demineralized bone matrix) as well as using extra bone from allograft sources (i.e. cadaver bone) or autograft (iliac crest bone, ribs, or the spine itself). The patient has been given information about these practices and their inherent risks and benefits. [facility] is an educational center that serves as a training facility for neurosurgical and orthopedic [employer] and Nursing students. Physician assistants are medically trained surgical providers who function in the outpatient, inpatient, and operating room setting under the direct supervision of the attending surgeon. [facility] has multiple operating rooms with single and overlapping rooms running daily. They currently function under the required guidelines as produced by the Senate Finance Committee with regards to the overlapping rooms and will continue to comply with changes to this policy as they occur. The requirements include and are complied with as follows: (1) the critical portions of the overlapping rooms will not occur at the same time, (2) the attending physician will be physically present during the critical portions of the procedure and immediately available during the entire case, and (3) a back-up attending is designated should the primary attending not be immediately available. The patient has had a chance to review all the listed information, has been given print outs detailing this information, and has had all his/her questions answered to their satisfaction. It was my pleasure to have seen and examined Ms. Linton. In our visit today we have had a chance to go over my understanding of our patient's current condition, the natural course history without intervention and various interventional options. Questions were invited and answered, and the patient wishes to proceed as outlined above. I have seen and examined the patient for 25 minutes and we have spent more than 50% of the time in repeat and detailed counseling about the patient's condition, its natural course history with out and as much as can be predicted with surgery and re-review of various surgical treatment options. In conclusion, Ms. Linton requested we proceed with the above suggested surgery and are willing to accept risks and limitations of the suggested surgery as nature of the disease process and our best attempts at treatment for the condition. MEDICAL NECESSITY NOTE: Given the patient's clinical presentation of progressive neurological deficits including left lower extremity weakness (4/5 strength) and radiculopathy following a fall injury, combined with objective imaging findings of L4-5 Grade I spondylolisthesis with large herniated nucleus pulposus causing severe stenosis, and L3-4 unstable Grade I spondylolisthesis with stenosis, surgical intervention is medically necessary. Conservative management including physical therapy, adult care manager, epidural steroid injections, and NSAIDs has failed to provide symptom relief over a 4-month period. The patient's quality of life is significantly impacted, requiring ambulatory assistance with a cane, experiencing sleep disturbances, and reporting persistent pain (VAS 5/10) exacerbated by basic activities of daily living including sitting, standing, and walking. SURGICAL RATIONALE NOTE: The proposed L4-5 laminoforaminotomy with microdiscectomy (left, MIS) is the most appropriate surgical intervention given the patient's specific pathology. This minimally invasive approach will address the large left-sided disc he rniation and neural compression while preserving spinal stability and minimizing tissue trauma. The decision to proceed with decompression alone, rather than fusion, is supported by the presence of a stable Grade I slip at L4-5. The targeted approach will provide direct neural decompression to address the patient's left-sided radicular symptoms while potentially allowing for faster recovery and reduced post-operative complications compared to more extensive procedures. The patient's relatively well-maintained disc height at other levels and primary symptoms correlating with the L4-5 pathology further support this focused surgical approach. FOLLOW UP: PRE-OP PLAN AT NEXT VISIT: RECHECK PATIENT EDUCATION: Medications Reviewed: YES In our visit today Ms. Linton and I have had a chance to go over my understanding of the patient's current condition, the natural course history without intervention and various interventional options. Questions were invited and answered, and the patient wishes to proceed as outlined above. I will be sure to keep you updated after Ms. Linton returns here for further follow-up. Thank you again for your referral. Please do not hesitate to contact me if you have any further questions. Signed and authenticated by: Marco Antonio Bruno [facility] [address] [place] [address] . This message is confidential, intended only for the named recipient(s) and may contain information that is privileged or exempt from disclosure under applicable law. If you are not the intended recipient(s), you are notified that the dissemination, distribution or copying of this information is prohibited. If you received this message in error, please notify the sender then delete this message. # SIGNED BY Marco Antonio Michaels (GOO)06/10/2024 06:48AM Past Medical History Past Medical History: Osteoarthritis (OA) Additional Past Medical History / Comment(s): Back and shoulder pain. History of Any Multi-Drug Resistant Organisms: None Reported Past Surgical History: Appendectomy, Cholecystectomy, Joint Replacement, Orthopedic Surgery Additional Past Surgical History / Comment(s): SURGERY FOR ECTOPIC , BILATERAL BUNIONECTOMIES, PILONIDAL CYSTECTOMY, COLONOSCOPY, CYST REMOVED FROM UNDER CHIN, right rotator cuff repair, total right knee replacement. Past Anesthesia/Blood Transfusion Reactions: Previous Problems w/ Anesthesia, Postoperative Nausea & Vomiting (PONV) Additional Past Anesthesia/Blood Transfusion Reaction / Comment(s): SLOW TO WAKE UP FROM ANESTHESIA. Smoking Status: Former smoker - Past Family History Daughter(s) Family Medical History: Cancer, Deep Vein Thrombosis (DVT) Additional Family Medical History / Comment(s): BREAST Mother Family Medical History: Deep Vein Thrombosis (DVT) Sister(s) Family Medical History: Cancer Father Family Medical History: Cancer Additional Family Medical History / Comment(s): Colon cancer. Medications and Allergies Home Medications Medication Instructions Recorded Confirmed Type No Known Home Medications 06/17/24 06/17/24 History Allergies Allergy/AdvReac Type Severity Reaction Status Date / Time Iodinated Contrast Media Allergy Anaphylaxis Verified 06/17/24 14:01 [Iodinated Contrast Media - IV Dye] Penicillins Allergy Rash/Hives Verified 06/17/24 14:01 shellfish derived [Shellfish] Allergy Anaphylaxis Verified 06/17/24 14:01 Physical Examination Osteopathic Statement: *. No significant issues noted on an osteopathic structural exam other than those noted in the History and Physical/Consult.
[~2024-06-22 07:18] MED LIST changes: -ACETAMINOPHEN TAB 500 MG TAB PO PRN; -HYDROmorphone 0.5 MG/0.5 ML SYRINGE IVP PRN; -LIDOCAINE 1% (10MG/ML) FOR IV START INTRADERMA PRN; -MELOXICAM 7.5 MG TAB PO PRN; -ONDANSETRON 4 MG/2 ML VIAL IVP ONE
[2024-06-22] MEDS: ACETAMINOPHEN TAB 500 MG TAB PO PRN (07:56)
[2024-06-22] MEDS: IV FLUID CONTINUATION 1,000 ML IV ONE ×2 (07:56→08:05)
[2024-06-22] MEDS: GABAPENTIN 300 MG CAP PO PRN (07:56)
[2024-06-22] MEDS: LACTATED RINGERS 1,000 ML IV SCH (07:57)
[2024-06-22] MEDS: LIDOCAINE 1% (10MG/ML) FOR IV START INTRADERMA STA (07:57)
[2024-06-22] MEDS: ONDANSETRON 4 MG/2 ML VIAL IVP ONE (07:58)
[2024-06-22] MEDS: DEXAMETHASONE SOD PHOSPHATE 4 MG/ML 1 ML VIAL IV ONE (07:58)
[2024-06-22] MEDS: MIDAZOLAM 2 MG/2 ML VIAL IV ONE (08:25)
[2024-06-22] MEDS: SCOPOLAMINE 1 MG/72 HR PATCH TRANSDERM STA (08:59)
[2024-06-22] MEDS ORDERED: MIDAZOLAM 2 MG/2 ML VIAL ONE (09:25)
[2024-06-22] MEDS ORDERED: PHENYLEPHRINE-0.9% NACL SYG 1,000 MCG/10 ML SYRINGE ONE (09:25)
[2024-06-22] MEDS ORDERED: LIDOCAINE 1% INJ 10MG/ML (20 ML MDV) ONE (09:25)
[2024-06-22] MEDS ORDERED: GLYCOPYRROLATE 0.2 MG/ML 2 ML VIAL ONE (09:25)
[2024-06-22] MEDS ORDERED: SUCCINYLCHOLINE CHLORIDE 200 MG/10 ML VIAL IV ONE (09:25)
[2024-06-22] MEDS ORDERED: SUGAMMADEX SODIUM 100 MG/ML SYR IV ONE (09:25)
[2024-06-22] MEDS ORDERED: NEOSTIGMINE 1 MG/ML 10 ML VIAL ONE (09:25)
[2024-06-22] MEDS ORDERED: fentaNYL (PF) 50 MCG/ML 2 ML AMP ONE (09:25)
[2024-06-22] MEDS ORDERED: TRANEXAMIC 1,000 MG/100ML-NACL PREMIX BAG ONE (09:25)
[2024-06-22] MEDS ORDERED: PROPOFOL 10 MG/ML 20 ML VIAL IV ONE (09:25)
[2024-06-22] MEDS ORDERED: ROCURONIUM 10 MG/ML (5 ML VIAL) IV ONE (09:25)
[2024-06-22] MEDS: THROMBIN (BOVINE) 5,000 UNIT VIAL TOPICAL ONE (10:00)
[2024-06-22] MEDS: BUPIVACAINE (PF) 0.5% 30 ML VIAL SQ ONE (10:00)
[2024-06-22] MEDS: LIDOCAINE 2%-EPI 1:100,000 20 ML VIAL SQ ONE (10:00)
--- NOTE | 2024-06-22 11:06 | FL ---
EXAMINATION TYPE: FL guidance operating room, XR lumbar spine 2 or 3V DATE OF EXAM: 06/22/2024 10:55 AM COMPARISON: Pre Operative Images if available both CT/MRI or plain film CLINICAL INDICATION: Female, 63 years old with history of MIN INVASIVE LUMBAR FUSION L4-5; TECHNIQUE: FL guidance operating room, XR lumbar spine 2 or 3V, multiple fluoroscopic images provided for procedure. DAP: 8.1822 mGym2 Gycm2 uGym2 cGycm2 or equivalent. FINDINGS: Fluoroscopic images during internal fixation/arthroplasty demonstrate hardware in appropriate positio n. Hardware appears intact. No immediate complication identified. IMPRESSION: 1. No evidence for intraoperative complication. 2. Please see the operative/procedural note for further details. [facility], , 06/22/2024 11:04 AM
--- NOTE | 2024-06-22 11:14 | P.OP ---
Date of Procedure: 06/22/24 Preoperative Diagnosis: 1. LUMBAR RADICULOPATHY 2. L4-5 HNP WITH STENOSIS 3. LOW BACK PAIN 4. LE WEAKNESS Postoperative Diagnosis: 1. LUMBAR RADICULOPATHY 2. L4-5 HNP WITH STENOSIS 3. LOW BACK PAIN 4. LE WEAKNESS Procedure(s) Performed: 1. L4-5 LAMINOFORAMINOTOMY WITH MICRODISCECOMTY NOTES: MIS LEFT Implants: NONE Anesthesia: GETA Surgeon: Micah Flores Perforator Loader #1: Curt Castro (was present and assisted with all aspects of the case from position to dressing placement) Estimated Blood Loss (ml): 25 IV fluids (ml): 1,000 Urine output (ml): 0 Pathology: none sent Condition: stable Disposition: PACU Indications for Procedure: Ms. Abimbola Linton, a 63-year-old female with a BMI of 43.90 kg/m2, presents for follow-up evaluation of lumbar spine pathology and MRI results. The patient initially sustained injury from a ladder fall approximately 4 months ago, resulting in left-sided lumbar radiculopathy with associated weakness (4/5 strength in left lower extremity) and paresthesias. Imaging studies reveal L4-5 Grade I spondylolisthesis with large herniated nucleus pulposus causing severe stenosis, and L3-4 unstable Grade I spondylolisthesis with stenosis. Conservative management including physical therapy, day care supervisor, and NSAIDs has failed to provide relief. After detailed discussion of surgical options and risks, patient has elected to proceed with L4-5 laminoforaminotomy with microdiscectomy (left, MIS). Current medications include ondansetron 8mg BID, gabapentin 100mg TID, and Medrol dose pack. Patient ambulates with cane ass istance and reports VAS pain score of 5/10. Description of Procedure: L4-5 LEFT LAMINOFORAMINOTOMY The patient was seen and examined in the preoperative area. All preoperative protocols were followed. Informed consent was obtained, risks and benefits of the procedure were discussed at length. Risks including bleeding infection damage to the surrounding tissue and risk of reoperation were discussed with the patient. Risk of anesthesia up to and including was discussed with the patient. These are outlined in the risk review. They were willing to accept th kiah risks and all the risks of surgery. The patient was given a weight-based dose of antibiotics in the form of 2 g Ancef. The patient was seen and evaluated by the anesthesia team who deemed them fit for surgery. The site was marked, the patient was willing to proceed with the procedure. The patient was transferred to the operative suite by the Department of anesthesia. They were then drifted off to sleep by the department anesthesia and GETA was performed. The patient tolerated this well. Once confirmation of lines and ventilation the patient was transferred to a prone Abdi table very carefully. All bony prominences including wrists, elbows, axilla, chest, hips, and thighs, and feet were padded very well. Special attention was paid to the genitalia, and these were padded accordingly. SCDs were placed on bilateral lower extremities and were connected. Arms were well padded and placed on arm boards up and out in the 90/90 position. Once in position, again we confirmed good ventilation capabilities and that lines were running appropriately. The patients Lumbar spine was then exposed. 1010s were placed outlining the incision site. Standard alcohol was used to clean the incision site and allowed to dry. C-arm was used to needle localize the pedicles at L4-5 and bio-lazaro the patient and confirm level for incision which was marked with a skin marker. Operative briefing was performed with all teams and everyone in agreement to proceed. The patient was then prepped and draped in a normal sterile fashion. Timeout was then performed, and all parties agreed with the procedure to be performed. Skin incision was made over the previously marked area. Fluoroscopy was then used to target the lamina and facet joints on the LEFT hand side of L4-5 and initial dilator for tubular retractor system was used to identify this area. Once in a good position, sequential dilation was taken up to 26 mm and tube selected. A70 mm tube was then placed and secured to the table. This was confirmed to be in good position on AP and Lateral imaging. Limited myomectomy was then done to identify the lamina, interlaminar space, and facet joints. Raghav-laminotomy, partial medial facetectomy and foraminotomy were performed at L4-5 using high speed yelena and Kerrison rongeur. The ligamentum flavum was removed with Kerrison and curette. Dura and roots protected. The disc space was identified along with the herniation. 11 blade was used to make small annulotomy and micro-pituitary used to remove loose disc fragments. Once fragments were removed, down biting curette was used to push any medial fragments down and towards the annulotomy and decompress centrally. The disc space was irrigated, and any loose fragments removed again. Bipolar was used for hemostasis and scarring of the annulotomy. The area was irrigated, and meticulous hemostasis performed. The bed was inspected, and all roots have ample room and are decompressed along with the dura. There were no injuries. Retractors were then removed. The wound was copiously irrigated with NSS. The deep fascia was closed with 0 PDS. Deep sub-q with 0 Vicryl and superficial with 2-0 Vicryl. Subcuticular was closed with 4-0 stratafix. The wound edges approximated well. The wound was then cleaned, and glue tape placed on the skin and allowed to dry. It was then covered with telfa, 4x4, and tegaderm. The patient was then transferred off the table back to their hospital bed a- traumatically. They were extubated by the department of anesthesia. They were then transferred to PACU in stable condition having tolerated the procedure with no complications.
[2024-06-22 11:23] VITALS: TEMP 97.1
[2024-06-22] MEDS: HYDROmorphone 0.5 MG/0.5 ML SYRINGE IVP PRN (11:40)
[2024-06-22] MEDS: ONDANSETRON 4 MG/2 ML VIAL IVP PRN (14:30)
[2024-06-22 14:32] VITALS: RESP 18
[2024-06-22 14:34] VITALS: BP 137/79; PULSE 50
== END 2024-06-22 15:14 | disposition home or self-care (01) ==
LOC: OR 07:18
PROVIDERS: ATTEND Orthopaedic Surgery
DX: M51.16 Intervertebral disc disorders with radiculopathy, lumbar region (principal); M47.26 Other spondylosis with radiculopathy, lumbar region; M48.062 Spinal stenosis, lumbar region with neurogenic claudication; M43.16 Spondylolisthesis, lumbar region; M47.27 Other spondylosis with radiculopathy, lumbosacral region; Z91.89 Other specified personal risk factors, not elsewhere classified; E78.5 Hyperlipidemia, unspecified; Z79.899 Other long term (current) drug therapy; Z87.891 Personal history of nicotine dependence; Z98.1 Arthrodesis status; Z91.041 Radiographic dye allergy status; Z88.0 Allergy status to penicillin; Z91.013 Allergy to seafood; W11.XXXA Fall on and from ladder, initial encounter
CPT/HCPCS: 72100; 63030; J2250; J1100; J0690; J2405; J1171; J0665